=== PATIENT | female | born 1965 | race Caucasian/White ===

== ENCOUNTER → 2018-03-20 14:33 | Outpatient (CLI) | payer BC, SELFPAY ==
--- NOTE | 2018-03-20 14:42 | US_ITS ---
US thyroid HISTORY: ITS.REASON: THYROMEGALY ORDERING PHYSICIAN: Radha Domínguez PATIENT AGE: 52 years Comparison: None FINDINGS: The right lobe is 4.7 x 1.4 x 2.5 cm. 16 x 9 mm ill-defined slightly hypoechoic nodule mid polar region with decreased echogenicity centrally 10 mm isoechoic nodule lower pole well-circumscribed The left lobe measures 5.7 x 2.1 x 2.8 cm. Hypo to isoechoic nodule superiorly at 8 x 6 mm 3.2 x 1.8 cm mixed cystic and solid nodule in the mid polar region 2.9 x 2 cm solid appearing nodule lower pole. Well-circumscribed IMPRESSION: Bilateral thyroid enlargement with bilateral thyroid nodules with 2 largest on the left at 3.2 and 2.9 cm. Consider ultrasound-guided fine-needle aspiration of the 2 largest nodules.
== END ==
PROVIDERS: PCP Family Medicine; Visit Provider Nurse Practitioner
DX: E01.0 Iodine-deficiency related diffuse (endemic) goiter (principal)
CPT/HCPCS: 76536

== ENCOUNTER → 2018-03-26 16:59 | Outpatient (CLI) | payer BC, SELFPAY ==
[2018-03-26 17:47] LABS: Calcium 10.1 mg/dL (8.5-10.1); Free T4 (Free Thyroxine) 0.86 ng/dl (0.76-1.46); Thyroid Stimulating Hormone 1.24 uIU/ml (0.358-3.740)
[2018-03-28 10:59] LABS: Thyroid Peroxidase Antibodies 10 IU/mL (0-34)
[2018-03-30 08:25] LABS: Calcitonin <2.0 pg/mL (0.0-5.0); Thyroid Stimulating Immunoglob <0.10 IU/L (0.00-0.55)
== END ==
PROVIDERS: Visit Provider Otolaryngology
DX: E01.0 Iodine-deficiency related diffuse (endemic) goiter (principal); D49.7 Neoplasm of unspecified behavior of endocrine glands and other parts of nervous system; E04.9 Nontoxic goiter, unspecified
CPT/HCPCS: 36415; 82308; 82310; 84439; 84443; 84445; 86376

== ENCOUNTER → 2018-04-06 09:28 | Outpatient (CLI) | payer BC, SELFPAY ==
--- NOTE | 2018-04-06 09:35 | US_ITS ---
US thyroid, US organ site (thyroid) FNA w guidance, Ordering Physician: Franklyn Grimes MD Patient Age: 52 years: Female HISTORY: ITS.REASON: THYROID NODULE COMPARISON is made to March 20, 2018 ultrasound thyroid. TECHNIQUE: Ultrasound again directly gland was performed with attention primarily to the left lobe. Subsequent to this ultrasound-guided fine-needle aspiration performed by Dr. Anders 2 discrete nodules/masses at the left lobe. FINDINGS AND PROCEDURE: ULTRASOUND THYROID -ATTN LEFT LOBE; 2 nodules/masses is identified left lobe.: The more homogeneous solid nodule at inferior left lobe again identified. It measures up to 2.9 cm maximally on previous study. The second area is at the mid to upper portion of the left lobe. This was was a large multiseptated complex cystic mass which measure up to 3 cm on previous ultrasound These images also determined the best approach for access to perform aspiration biopsy of this nodule. Scanning by Dr. Anders along with technologist MW ======== ULTRASOUND-GUIDED FNA BIOPSY- 2 nodules left lobe . sterile preparation as well as local skin, and cautious slightly deeper placement of Xylocaine anesthetic . . . Site 1.: LEFT LOWER LOBE/INFERIOR SOLID THYROID NODULE at the left lobe was initially biopsied/sample: Under ultrasound guidance the biopsy needle, was advanced to the nodule and positioned. Needle tip was observed passing into this solid nodule on each of multipleFNA biopsies passes. 3 FNA passes performed here with 25-gauge needle . Site 2: Thereafter the SEPTATED COMPLEX CYSTIC MASS at MID TO UPPER LEFT LOBE was then biopsy: Under ultrasound guidance the 25-gauge needle was directed to this area. 3 FNA passes performed a 25-gauge needle. Bloody fluid was removed with each pass. . 2 separate cytology specimen containers were submitted. Adequate material appear to be present in each FNA specimen material obtained and subsequently submitted to cytopathology. Patient tolerated procedure well. With minimal discomfort IMPRESSION: 1. Fine-needle aspiration biopsy of 2 nodule/mass areas at left lobe thyroid. 2. Solid nodule left lower lobe, INFERIOR POLE LEFT LOBE FNA (SITE 1) Complex septated cystic labeled LEFT MID LEFT LOBE, FNA (SITE 2) 3. CYTOPATHOLOGY results:. BENIGN FINDINGS BOTH AREAS. Both site 1 & site 2 FNA samples negative for malignant cells. & Will compatible with benign follicular nodule .
== END ==
PROVIDERS: PCP Family Medicine; Visit Provider Otolaryngology
DX: D49.7 Neoplasm of unspecified behavior of endocrine glands and other parts of nervous system (principal); E01.0 Iodine-deficiency related diffuse (endemic) goiter; E04.9 Nontoxic goiter, unspecified
CPT/HCPCS: 10022; 76536

== ENCOUNTER → 2018-04-28 10:23 | Outpatient (CLI) | payer BC, SELFPAY ==
[2018-04-28 10:57] LABS: Hematocrit 43.7 % (37.0-47.0); Hemoglobin 14.4 g/dL (12.2-16.2); Mean Corpuscular HGB Conc 32.9 g/dL (31.8-35.4); Mean Corpuscular Hemoglobin 29.7 pg (27.0-31.2); Mean Corpuscular Volume 90.1 fl (81-99); Red Blood Count 4.85 M/mm3 (4.20-5.40); White Blood Count 4.3 K/mm3 (4.8-10.8)
[2018-04-28 10:58] LABS: Basophils % 0.5 % (0.1-2.0); Eosinophils # 0.2 K/mm3 (0.0-0.4); Eosinophils % 4.2 % (0.1-12.0); Lymphocytes # 1.3 K/mm3 (0.7-4.5); Lymphocytes % 29.6 K/mm3 (10-50); Mean Platelet Volume 7.3 fl (7.4-10.4); Monocytes # 0.4 K/mm3 (0.1-1.0); Monocytes % 8.8 % (1.7-9.3); Neutrophils # 2.5 K/mm3 (1.8-7.8); Neutrophils % 56.9 % (37.0-80.0); Platelet Count 268 K/mm3 (142-424); Red Cell Distribution Width 12.3 % (11.5-17.5)
[2018-04-28 12:50] LABS: Anion Gap 8.9 mEq/L (5-15); Blood Urea Nitrogen 19 mg/dL (7-18); Calcium 9.5 mg/dL (8.5-10.1); Carbon Dioxide 32 mmol/L (21.0-32.0); Chloride 106 mmol/L (98-107); Creatinine,Serum 0.91 mg/dL (0.55-1.02); Estimated Glomerular Filt Rate 65 ml/min (>60); GFR (African American) 79 ML/MIN (>60); Glucose 94 mg/dL (74-106); Potassium 4.9 mmoL/L (3.5-5.1); Sodium 142 mmol/L (136-145)
== END ==
PROVIDERS: PCP Nurse Practitioner; Visit Provider Nurse Practitioner
DX: Z01.818 Encounter for other preprocedural examination (principal)
CPT/HCPCS: 36415; 80048; 85025; 93005

== ENCOUNTER → 2018-06-16 09:12 | Outpatient (CLI) | payer BC, SELFPAY ==
[2018-06-16 11:26] LABS: Calcium 9.2 mg/dL (8.5-10.1); Free T4 (Free Thyroxine) 1.29 ng/dl (0.76-1.46); Thyroid Stimulating Hormone 0.07 uIU/ml (0.358-3.740)
== END ==
PROVIDERS: PCP Nurse Practitioner; Visit Provider Otolaryngology
DX: D49.7 Neoplasm of unspecified behavior of endocrine glands and other parts of nervous system (principal); Z98.890 Other specified postprocedural states
CPT/HCPCS: 36415; 82310; 84439; 84443

== ENCOUNTER → 2019-05-16 14:26 | Outpatient (CLI) | payer BC, SELFPAY ==
--- NOTE | 2019-05-16 14:35 | US_ITS ---
PROCEDURE: US TRANSVAGINAL CLINICAL INDICATION: POST MENOPAUSAL BLEEDING COMPARISON: No exams were available for comparison FINDINGS: UTERUS: The uterus is retroverted measuring 8 x 5 x 6 cm with a combined endometrial thickness of 1 cm. No uterine mass evident. LEFT OVARY: 3 by 3 cm with small follicles RIGHT OVARY: 3 x 2.7 cm. There is a 3 x 2 cm cyst with a small amount of fluid adjacent to the right ovary. IMPRESSION: 1. Endometrium is mildly thickened if the patient is truly postmenopausal. 2. 3 cm right ovarian cyst with small amount of sub adjacent fluid Dictated by: Jackson Cabrera MD 05/17/2019 06:02 Electronically signed by Jackson Cabrera MD in [place] 05/17/2019 06:02
== END ==
PROVIDERS: PCP Nurse Practitioner; Visit Provider Nurse Practitioner
DX: N95.0 Postmenopausal bleeding (principal)
CPT/HCPCS: 76830

== ENCOUNTER → 2019-07-01 16:18 | Outpatient (CLI) | payer BC, SELFPAY ==
[2019-07-01 18:37] LABS: Free T4 (Free Thyroxine) 1.03 ng/dl (0.76-1.46); Thyroid Stimulating Hormone 1.19 uIU/ml (0.358-3.740)
== END ==
PROVIDERS: Visit Provider Otolaryngology
DX: E03.9 Hypothyroidism, unspecified (principal)
CPT/HCPCS: 36415; 84439; 84443

== ENCOUNTER → 2021-01-25 14:31 | Outpatient (CLI) | payer BC, SELFPAY ==
--- NOTE | 2021-01-25 14:37 | US_ITS ---
PROCEDURE: MM DIG MAMM BI DX W/CAD Digital Breast Tomosynthesis Included CLINICAL INDICATION: BREAST PAIN,RT COMPARISON: MG Mammogram Comparison from 03/20/2007 MG Mammogram Comparison from 03/29/2007 MG DMSB DIG MAMM-SCREEN DANILO from 04/09/2013 US BL US BREAST-LT from 05/07/2013 MG DMDXUWAL DIG MAMM-DX UNI LT ADD VIEW from 05/07/2013 US US BREAST RT COMPLETE from 01/25/2021 TECHNIQUE: Standard CC and MLO images and 3D Tomosynthesis was obtained. R2 CAD reviewed. FINDINGS: Exams were performed without comparison. Comparison studies have been made available since. Problem solving views were not performed as a comparison is were not available at the time the performance of the study. Ultrasound the right breast was performed along with mammogram and tomography. Average fibroglandular tissue. Right breast: Benign-appearing well-circumscribed slightly lobular 6 mm nodules present in the upper outer right breast. Left breast: At least three nodular opacities are present 1 in the upper outer left breast which measures 7 mm. One in the upper left breast at 9 mm. And 1 in the upper outer left breast central 1/3 at 12 mm. Ultrasound of the left breast suggested for further evaluation. Right breast ultrasound: There is a palpable nodule reported in the axillary region. At 12 o'clock there is a 9 mm complicated cystic lesion. At 9 o'clock there is an additional complicated cystic area at 8 mm which may correspond to the mammographic abnormality.. Small nodes are present in the axilla. No abnormality noted at the area of palpable concern. IMPRESSION: Multiple benign-appearing left breast nodules which were not present on the previous study. Suggest left breast ultrasound to confirm cystic or solid nature. Benign findings of the right breast. BI-RAD Category: 0 Need Additional Imaging Evaluation FOLLOW-UP: IMM Immediate Follow-up Recommended (A letter has been sent to the patient regarding results of the study.) Dictated by: Jackson Cabrera MD 02/08/2021 11:08 Jackson Cabrera MD in [place] 02/08/2021 11:08
== END ==
PROVIDERS: PCP Nurse Practitioner; Visit Provider Nurse Practitioner
DX: N64.4 Mastodynia (principal)
CPT/HCPCS: 76641; 77062; 77066; G0279

== ENCOUNTER → 2021-02-16 14:12 | Outpatient (CLI) | payer BC, SELFPAY ==
--- NOTE | 2021-02-16 14:14 | US_ITS ---
PROCEDURE: US BREAST LT COMPLETE CLINICAL INDICATION: ABN MAMM Left breast nodules COMPARISON: MG Mammogram Comparison from 03/20/2007 MG Mammogram Comparison from 03/29/2007 US BL US BREAST-LT from 05/07/2013 MG DMDXUWAL DIG MAMM-DX UNI LT ADD VIEW from 05/07/2013 US US BREAST RT COMPLETE from 01/25/2021 MG MM DIG MAMM BI DX W/CAD from 01/25/2021 FINDINGS: Previous mammogram demonstrated 3 nodules in the left breast. These areas were evaluated with ultrasound. Comparison is also made to an older ultrasound of 05/07/2013. At 1 o'clock there is a nodule measuring 5 mm by 6 mm with peripheral hypoechogenicity and internal increased echogenicity suggesting a small lymph node. At 3 o'clock outer there is a an 8 by 4 mm I so to slightly hypoechoic area possibly due to small benign-appearing nodule versus fibroglandular tissue. This may account for the new mammographic abnormality. This was present on previous ultrasound of 05/07/2013 and not significantly changed. At 1 o'clock in the mid breast there is a 8 x 4 mm mixed nodule with areas of increased and decreased echogenicity and may be due to lymph node having a benign appearance. IMPRESSION: Probably benign findings. BI-RADS category 3, probably benign. Recommend six-month mammographic and sonographic follow-up of the left breast. Dictated by: Jackson Cabrera MD 02/17/2021 09:02 Jackson Cabrera MD in [place] 02/17/2021 09:02
== END ==
PROVIDERS: PCP Nurse Practitioner; Visit Provider Nurse Practitioner
DX: R92.8 Other abnormal and inconclusive findings on diagnostic imaging of breast (principal)
CPT/HCPCS: 76641

== ENCOUNTER → 2021-03-22 17:25 | Outpatient (CLI) | payer BC, SELFPAY | PROVIDERS: Visit Provider Surgery | DX: Z01.812 Encounter for preprocedural laboratory examination (principal); Z11.52 Encounter for screening for COVID-19; Z12.11 Encounter for screening for malignant neoplasm of colon | CPT/HCPCS: U0003 ==

== ENCOUNTER 2021-03-24 06:41 | Day surgery (SDC) | payer BC, SELFPAY ==
[2021-03-23 10:16] VITALS: BMI 35.5
[2021-03-24] VITALS (8 sets, daily range): BP systolic 111–153; BP diastolic 61–88; PULSE 62–75; RESP 18–20; TEMP 36.2–36.7; O2SAT 96–100
--- NOTE | 2021-03-24 07:08 | HMH.GSHP ---
HPI HPI: Patient is a 55-year-old female from [facility] referred by Radha Domínguez and Dr. Sorto's office for colonoscopy. She has never had prior colonoscopy. Her father had of colon cancer at age 67. He did have melanoma and lymphoma as well. She states that her paternal aunt may have had colon cancer. She has no symptomatology. Normal bowel movements. No rectal bleeding. Of note, patient had significant nausea and vomiting upon presentation after second dose of her Suprep. [facility] History I have reviewed the patient's past medical history: Yes Medical History: Reports:: Depression Denies:: Cancer, Diabetes Mellitus Type 1, Diabetes Mellitus Type 2, Internal Pacemaker, MRSA, Seizures *Have you ever received a pneumonia vaccine?: No *Have you received a flu vaccine this season?: Yes (2019) Other Medical History: Reports: Thyroid Disease. Denies: Blood Transfusion Reaction Laterality Cases: Bilateral: Other Other Surgeries: Yes: , Dilation and Curettage, Thyroidectomy. 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 Review of Systems - Review of Systems Review of systems:: pertinent systems reviewed and negative unless documented below Meds Home Medications Medication Instructions Recorded Confirmed Type levothyroxine 112 mcg capsule 112 mcg PO DAILY 04/06/19 03/24/21 History Cetirizine HCl [Zyrtec 10mg Tab*] 10 mg PO DAILY 03/23/21 03/24/21 History Sertraline HCl 75 mg PO DAILY 03/23/21 03/24/21 History Allergies Allergy/AdvReac Type Severity Reaction Status Date / Time naproxen [From Aleve] Allergy tounge Verified 03/24/21 07:01 swells Exam I & O for Last 24 hours: Intake & Output 03/21/21 03/22/21 03/23/21 03/24/21 11:59 11:59 11:59 11:59 Weight 220 lb - Constitutional no acute distress - *Routine HEENT Exam Head: Present: normocephalic Eye: Present: EOMI, PERRL ENT: Present: mucous membranes moist - *Routine Neck Exam Present: supple. Absent: lymphadenopathy - *Routine Respiratory Exam Present: CTA bilaterally - *Routine Cardiovascular Exam Present: RRR - *Routine Abdominal Exam Present: soft, normoactive bowel sounds. Absent: tenderness - *Routine Rectal Exam Rectal:: deferred - *Routine Genitalia Exam Genitalia:: deferred - *Routine Extremities Exam Absent: cyanosis, clubbing, edema - *Routine Skin Exam Present: warm. Absent: rash - *Routine Neurological Exam Present: alert, oriented X3 Assessment and Plan - Assessment and plan all Dx Assessment and Plan for all problems:: Plan to proceed with colonoscopy
[2021-03-24 07:18] LABS: POC Glucose,Bedside 161 (70-110)
--- NOTE | 2021-03-24 08:20 | P.PCN_ITS ---
- Procedure: Date: 03/24/21 Patient Date of :: 1965 Procedure Performed:: Total colonoscopy with polypectomy by snare Indications:: Patient is a 55-year-old female from [facility] referred by Radha Domínguez and Dr. Sorto's office for colonoscopy. She has never had prior colonoscopy. Her father had of colon cancer at age 67. He did have melanoma and lymphoma as well. She states that her paternal aunt may have had colon cancer. She has no symptomatology. Normal bowel movements. No rectal bleeding. Of note, patient had significant nausea and vomiting upon presentation after second dose of her Suprep. Performing Provider:: Felton Lin MD Referring Provider:: Radha Domínguez Sedation:: MAC sedation Procedure:: Patient was taken to endoscopy procedure room. She was positioned in lateral decubitus position. Adequate intravenous sedation was achieved. Digital examination was performed which was unremarkable. Variable stiffness Olympus colonoscope was inserted via the anus. Was advanced to the cecum. Advancement into the cecum was somewhat difficult due to significant floppiness and redundancy of the sigmoid colon. Colonic preparation was good. Ileocecal valve and appendiceal orifice were clearly identified. Colonoscope was withdrawn through the colon with careful surveillance. There was noted to be a small poly p in the distal transverse colon removed with cold cutting snare. There were a few very rare left-sided diverticuli. Within the rectum retroflexion was performed which revealed no evidence of any pathologic internal hemorrhoids. Colonoscope was withdrawn. Findings:: Small transverse colon polyp Rare left-sided diverticuli Recommendations:: Pending the pathology likely repeat colonoscopy 3 years given the family history Complications:: None immediately apparent Estimated blood obtained (mL): 1
--- NOTE | 2021-03-24 10:22 | HMH.ANESCL ---
[facility] Anesthesia Checklist - Patient Identification Patient Identification: Arm Band, Verbal (Name & ) - Structural Data Admitted From: Home Planned Operative Procedure/s: colonoscopy Consent for Planned Operative Procedure(s) Verified: Yes Verified Documents: History and Physical - NPO Status Verified Time NPO: 00:00 - Chart Verification Results Verified: CBC - Additional verifications Patient : No Anesthesia Reactions: No Hx Blood Transfusions: No Blood Transfusion Reaction: No Cephalosporin Allergy: No Previous Colonoscopy: Yes - Cardiovascular Assessment Heart Sounds: S1 & S2 Pulse Strength: Baseline Pulse Rhythm: Regular - Airway Assessment C-Spine Mobility Assessed: Yes TMJ Mobility Assessed: Yes Dentition: Good Dentition - Neurological Assessment Level of Consciousness: Awake, Alert, Appropriate Hx Seizures: No Numbness or tingling in extremities: No - Anesthesia Plan Anesthesia Risk discussed: Yes Anesthesia Plan: Verified ASA Class: II Anesthesia Type: MAC [facility] History I have reviewed the patient's past medical history: Yes Medical History: Reports:: Depression Denies:: Cancer, Diabetes Mellitus Type 1, Diabetes Mellitus Type 2, Internal Pacemaker, MRSA, Seizures *Have you ever received a pneumonia vaccine?: No *Have you received a flu vaccine this season?: Yes (2019) Other Medical History: Reports: Thyroid Disease. Denies: Blood Transfusion Reaction Anesthesia experience/problems:: none Laterality Cases: Bilateral: Other Other Surgeries: Yes: , Dilation and Curettage, Thyroidectomy. 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
== END 2021-03-24 09:15 | disposition home or self-care (01) ==
LOC: OUTP 06:45
PROVIDERS: PCP Nurse Practitioner; Visit Provider Surgery
PROC: 0DJD8ZZ Inspection of Lower Intestinal Tract, Via Natural or Artificial Opening Endoscopic (ICD-10-PCS; CPT 45385; principal; 2021-03-24 07:30)
DX: Z12.11 Encounter for screening for malignant neoplasm of colon (principal); Z80.0 Family history of malignant neoplasm of digestive organs; K63.5 Polyp of colon; K57.30 Diverticulosis of large intestine without perforation or abscess without bleeding; F32.9 Major depressive disorder, single episode, unspecified; E07.9 Disorder of thyroid, unspecified; Z83.3 Family history of diabetes mellitus; Z83.49 Family history of other endocrine, nutritional and metabolic diseases; Z88.6 Allergy status to analgesic agent; Z79.899 Other long term (current) drug therapy
CPT/HCPCS: 45385; 82962; J2704

== ENCOUNTER → 2021-04-23 16:40 | Outpatient (CLI) | payer BC, SELFPAY ==
--- NOTE | 2021-04-23 16:51 | XR_ITS ---
PROCEDURE INFORMATION: Exam: XR Chest Exam date and time: 04/23/2021 4:51 PM Age: 55 years old Clinical indication: Shortness of breath; Additional info: Covid outpatient TECHNIQUE: Imaging protocol: XR of the chest. Views: 1 view. COMPARISON: No relevant prior studies available. FINDINGS: Airway: Patent Lungs: Subtle bilateral infrahilar and basal ground-glass opacifications are noted. Remainder of the lungs are clear. Pleural spaces: Unremarkable. No pleural effusion. No pneumothorax. Heart/Mediastinum: Unremarkable. No cardiomegaly. Bones/joints: No acute skeletal abnormality or aggressive osseous lesion. IMPRESSION: Findings are concerning for early/developing basal predominant COVID-19 pneumonia in this patient with a positive history.
[2021-04-23 17:49] LABS: Basophils % 0.6 % (0.1-2.0); Eosinophils # 0.2 K/mm3 (0.0-0.4); Hematocrit 40.6 % (37.0-47.0); Hemoglobin 13.6 g/dL (12.2-16.2); Lymphocytes # 1.7 K/mm3 (0.7-4.5); Lymphocytes % 24.4 % (10-50); Mean Corpuscular HGB Conc 33.6 g/dL (31.8-35.4); Mean Corpuscular Hemoglobin 29.9 pg (27.0-31.2); Mean Corpuscular Volume 88.8 fl (81-99); Mean Platelet Volume 7.5 fl (7.4-10.4); Monocytes # 0.4 K/mm3 (0.1-1.0); Monocytes % 6.3 % (1.7-9.3); Neutrophils # 4.6 K/mm3 (1.8-7.8); Neutrophils % 65.7 % (37.0-80.0); Platelet Count 304 K/mm3 (142-424); Red Blood Count 4.57 M/mm3 (4.20-5.40); Red Cell Distribution Width 12.7 % (11.5-17.5)
== END ==
PROVIDERS: PCP Nurse Practitioner; Visit Provider Nurse Practitioner
DX: Z20.822 Contact with and (suspected) exposure to COVID-19 (principal); R06.02 Shortness of breath
CPT/HCPCS: 71045; 85025; C9803; U0003; U0005

== ENCOUNTER → 2021-04-27 09:59 | Outpatient (CLI) | payer BC, SELFPAY | PROVIDERS: PCP Nurse Practitioner; Visit Provider Nurse Practitioner | DX: Z20.822 Contact with and (suspected) exposure to COVID-19 (principal); U07.1 COVID-19 | CPT/HCPCS: C9803; U0003; U0005 ==

== ENCOUNTER → 2021-05-10 18:27 | Outpatient (CLI) | payer BC, SELFPAY ==
--- NOTE | 2021-05-10 19:31 | XR_ITS ---
PROCEDURE INFORMATION: Exam: XR Chest Exam date and time: 05/10/2021 7:31 PM Age: 55 years old Clinical indication: Condition or disease; Other: Covid positive patient; Additional info: Covid outpatient TECHNIQUE: Imaging protocol: XR of the chest. Views: 1 view. COMPARISON: CR XR CHEST PORTABLE 04/23/2021 4:55 PM FINDINGS: Lungs: Unremarkable. No consolidation. Pleural spaces: Unremarkable. No pleural effusion. No pneumothorax. Heart/Mediastinum: Unremarkable. No cardiomegaly. Bones/joints: There are old healed fractures noted along the posterior aspects of the left 4th through 8th ribs. There are degenerative changes of the thoracic spine. IMPRESSION: No acute findings.
[2021-05-10 20:11] LABS: Basophils # 0.1 K/mm3 (0-0.2); Basophils % 0.7 % (0.1-2.0); Eosinophils # 0.3 K/mm3 (0.0-0.4); Eosinophils % 3.8 % (0.1-12.0); Hematocrit 42.6 % (37.0-47.0); Hemoglobin 14.5 g/dL (12.2-16.2); Lymphocytes # 1.9 K/mm3 (0.7-4.5); Lymphocytes % 21.4 % (10-50); Mean Corpuscular Hemoglobin 30.2 pg (27.0-31.2); Mean Corpuscular Volume 88.7 fl (81-99); Mean Platelet Volume 7.7 fl (7.4-10.4); Monocytes # 0.6 K/mm3 (0.1-1.0); Monocytes % 6.4 % (1.7-9.3); Neutrophils # 5.9 K/mm3 (1.8-7.8); Neutrophils % 67.6 % (37.0-80.0); Platelet Count 369 K/mm3 (142-424); Red Blood Count 4.81 M/mm3 (4.20-5.40); Red Cell Distribution Width 13.3 % (11.5-17.5); White Blood Count 8.8 K/mm3 (4.8-10.8)
== END ==
PROVIDERS: Family Medicine; PCP Nurse Practitioner; Visit Provider Nurse Practitioner
DX: Z20.822 Contact with and (suspected) exposure to COVID-19 (principal); U07.1 COVID-19
CPT/HCPCS: 36415; 71045; 85025; C9803; U0003; U0005

== ENCOUNTER → 2021-08-02 13:33 | Outpatient (CLI) | payer BC, SELFPAY ==
--- NOTE | 2021-08-02 13:41 | MM_ITS ---
PROCEDURE INFORMATION: Exam: US Left Breast, Complete MG Left Diagnostic Breast Tomosynthesis Exam date and time: 08/02/2021 1:42 PM Age: 55 years old Clinical indication: Six-month a follow-up was recommended on 02/16/2021 to assess stability of left 1 o'clock and 3 o'clock breast mass. TECHNIQUE: Imaging protocol: Complete ultrasound of all four quadrants of the Left breast and the retroareolar regions, including ultrasound of the axilla when performed. Left Diagnostic tomosynthesis and 2D mammography including computer-aided detection (CAD) when performed. Unilateral or bilateral exam. COMPARISON: 1. MG MM DIG MAMM BI DX W/CAD 01/25/2021 2:44 PM 2. MG DMDXUWAL DIG MAMM-DX UNI LT ADD VIEW 05/07/2013 1:59 PM 3. MG DMSB DIG MAMM-SCREEN DANILO 04/09/2013 10:17 AM 4. US BREAST LT COMPLETE 02/16/2021 2:19 PM FINDINGS: MAMMOGRAPHY: There are scattered areas of fibroglandular density. There are 3 nodules in the upper outer left breast measuring 12 mm in the upper outer about 10 cm from the nipple, measuring 8 mm upper outer 12 cm from the nipple, and measuring 6 mm upper outer 19 cm from the nipple. These are entirely unchanged compared with 01/25/2021 and I suspect were present on 04/09/2013 but obscured by overlying glandular structures. No associated architectural distortion or suspicious calcifications are present. These have mammographic features highly suggestive of benign intramammary lymph nodes No new mass, architectural distortion, or suspicious calcifications have developed to suggest malignancy. No axillary adenopathy. ULTRASOUND: Ultrasound assessment demonstrates a horizontal hypoechoic gently lobulated 7 x 4 by 6 mm mass in the 1 o'clock left middle 1/3 breast and measuring 4 x 6 x 4 mm in the 1 o'clock left posterior breast. These demonstrate central elevated echotexture, highly suggestive of benign intramammary lymph node. These previously measured 7 x 8 x 4 mm and 5 x 6 x 4 mm respectively on 02/16/2021 No suspicious solid or cystic mass has developed No shadowing IMPRESSION: Stable appearance of 3 suspected upper outer left breast intramammary lymph nodes. No new or suspicious findings have developed. Continued surveillance is warranted with left diagnostic mammogram and ultrasound in 6 months, at which time the patient will be due for bilateral screening mammogram ASSESSMENT: BI-RADS category 3: Probably benign
== END ==
PROVIDERS: PCP Nurse Practitioner; Visit Provider Nurse Practitioner
DX: R92.8 Other abnormal and inconclusive findings on diagnostic imaging of breast (principal)
CPT/HCPCS: 76641; 77061; 77065; G0279

== ENCOUNTER → 2021-10-20 10:32 | Outpatient (CLI) | payer BC, SELFPAY ==
[2021-10-20 10:52] LABS: Adenovirus,PCR Not Detected (NotDetected); Bordetella Pertussis Not Detected (NotDetected); Chlamydophila Pneumoniae, PCR Not Detected (NotDetected); Coronavirus 19, PCR Not Detected (NotDetected); Coronavirus 229E Not Detected (NotDetected); Coronavirus NL63 Not Detected (NotDetected); Coronavirus OC43 Not Detected (NotDetected); Coronovirus HKU1,PCR Not Detected (NotDetected); Human Metapneumovirus Not Detected (NotDetected); Influenza A, PCR Not Detected (NotDetected); Influenza AH1, 2009 Not Detected (NotDetected); Influenza AH1, PCR Not Detected (NotDetected); Influenza AH3,PCR Not Detected (NotDetected); Influenza B, PCR Not Detected (NotDetected); Mycoplasma Pneumoniae, PCR Not Detected (NotDetected); Parainfluenza 1, PCR Not Detected (NotDetected); Parainfluenza 2, PCR Not Detected (NotDetected); Parainfluenza 3, PCR Not Detected (NotDetected); Parainfluenza 4, PCR Not Detected (NotDetected); Respiratory Syncytial Virus Not Detected (NotDetected); Rhinovirus/Enterovirus Not Detected (NotDetected)
[2021-10-20 10:57] LABS: Basophils % 0.4 % (0.1-2.0); Eosinophils # 0.2 K/mm3 (0.0-0.4); Eosinophils % 2.1 % (0.1-12.0); Hematocrit 43.7 % (37.0-47.0); Hemoglobin 14.1 g/dL (12.2-16.2); Lymphocytes # 1.4 K/mm3 (0.7-4.5); Lymphocytes % 15.2 % (10-50); Mean Corpuscular HGB Conc 32.4 g/dL (31.8-35.4); Mean Corpuscular Hemoglobin 29.7 pg (27.0-31.2); Mean Corpuscular Volume 91.9 fl (81-99); Mean Platelet Volume 8.3 fl (7.4-10.4); Monocytes # 0.6 K/mm3 (0.1-1.0); Monocytes % 6.5 % (1.7-9.3); Neutrophils # 7.1 K/mm3 (1.8-7.8); Neutrophils % 75.8 % (37.0-80.0); Platelet Count 305 K/mm3 (142-424); Red Blood Count 4.76 M/mm3 (4.20-5.40); Red Cell Distribution Width 13.3 % (11.5-17.5); White Blood Count 9.4 K/mm3 (4.8-10.8)
== END ==
PROVIDERS: PCP Nurse Practitioner; Visit Provider Nurse Practitioner
DX: Z20.822 Contact with and (suspected) exposure to COVID-19 (principal)
CPT/HCPCS: 36415; 85025; 87581; 87632; 87798; C9803; U0003; U0005

== ENCOUNTER → 2022-02-10 12:57 | Outpatient (CLI) | payer BC, OTHER, SELFPAY ==
--- NOTE | 2022-02-10 13:01 | US_ITS ---
The PROCEDURE INFORMATION: Exam: US Left Breast, Complete MG Bilateral Screening 3D Mammography Exam date and time: 02/10/2022 1:03 PM Age: 56 years old Clinical indication: Screening examination; Abnormal findings on imaging; Left; Mass; Additional info: Screening, danilo , f/u lt breast TECHNIQUE: Imaging protocol: Complete ultrasound of all four quadrants of the Left breast and the retroareolar regions, including ultrasound of the axilla when performed. Bilateral Screening tomosynthesis and 2D mammography including computer-aided detection (CAD) when performed. COMPARISON: 1. MG MM DIG MAMM DX UNILAT LT CAD 08/02/2021 2:00 PM 2. MG MM DIG MAMM BI DX W/CAD 01/25/2021 2:44 PM 3. MG DMDXUWAL DIG MAMM-DX UNI LT ADD VIEW 05/07/2013 1:59 PM 4. MG DMSB DIG MAMM-SCREEN DANILO 04/09/2013 10:17 AM Ultrasound 08/02/2021 and 02/16/2021 FINDINGS: MAMMOGRAPHY: There are scattered areas of fibroglandular density. 3 upper outer left breast masses ranging from 4 mm to 11 mm are unchanged. No associated architectural distortion or suspicious calcifications are present the the the No new mass, architectural distortion, or suspicious calcifications have developed to suggest malignancy. No axillary adenopathy. Left breast ULTRASOUND: Ultrasound of the left breast was performed to the the assess stability of left breast masses Along the 1 o'clock axis 8 cm from the left nipple there is a mixed hypoechoic and echogenic horizontally oriented circumscribed gently lobulated mass which measures 9 x 9 x 6 mm. This was not characterized on 02/16/2021 and measured about 7 x 7 by 4 mm on 08/02/2021. Of note, this appears to be stable mammographically the The difference in size may reflect altered measuring technique. This does require short-term follow-up targeted ultrasound to assure stability Echogenic structure with hypoechoic cortex along the 1 o'clock axis posteriorly has sonographic features consistent with a 7 mm intramammary lymph node which is not significantly changed given the difference in measuring technique Hypoechoic circumscribed cystic appearing structure in the lower outer quadrant left breast 7 cm from the nipple has features of a minimally complicated cyst IMPRESSION: Sonographic surveillance of a left-sided 1 o'clock breast mass is warranted in 6 months to assure stability. This demonstrates generally benign features and is mammographically stable dating back to 08/02/2021, however apparent sonographic increase in size is thought to reflect measuring technique ASSESSMENT: Screening mammogram BIRADS: BI-RADS category 2: Benign Overall BIRADS: BI-RADS category 3: Probably benign
== END ==
PROVIDERS: PCP Nurse Practitioner; Visit Provider Nurse Practitioner
DX: R92.8 Other abnormal and inconclusive findings on diagnostic imaging of breast (principal)
CPT/HCPCS: 76641; 77063; 77067

== ENCOUNTER → 2022-02-25 06:35 | Outpatient (CLI) | payer BC, OTHER, SELFPAY ==
[2022-02-24 19:04] LABS: Basophils % 0.7 % (0.1-2.0); Eosinophils # 0.2 K/mm3 (0.0-0.4); Eosinophils % 3.4 % (0.1-12.0); Hematocrit 42.5 % (37.0-47.0); Hemoglobin 14.3 g/dL (12.2-16.2); Lymphocytes # 1.7 K/mm3 (0.7-4.5); Lymphocytes % 29.6 % (10-50); Mean Corpuscular HGB Conc 33.7 g/dL (31.8-35.4); Mean Corpuscular Hemoglobin 29.1 pg (27.0-31.2); Mean Corpuscular Volume 86.1 fl (81-99); Mean Platelet Volume 7.9 fl (7.4-10.4); Monocytes # 0.5 K/mm3 (0.1-1.0); Monocytes % 8.5 % (1.7-9.3); Neutrophils # 3.4 K/mm3 (1.8-7.8); Neutrophils % 57.8 % (37.0-80.0); Platelet Count 329 K/mm3 (142-424); Red Blood Count 4.94 M/mm3 (4.20-5.40); Red Cell Distribution Width 12.9 % (11.5-17.5); White Blood Count 5.8 K/mm3 (4.8-10.8)
[2022-02-24 19:18] LABS: Alanine Aminotransferase 31 U/L (12-78); Albumin Level 3.9 g/dl (3.5-5.0); Albumin/Globulin Ratio 1.5 (1.1-1.8); Alkaline Phosphatase 103 U/L (38-126); Anion Gap 12.1 mEq/L (5-15); Aspartate Amino Transferase 31 U/L (14-36); Blood Urea Nitrogen 20 mg/dl (7-17); Calcium 9.8 mg/dl (8.4-10.2); Carbon Dioxide 26 mmol/L (22.0-30.0); Chloride 105 mmol/L (98-107); Chol/HDL Ratio 3.2 (1-3.5); Cholesterol 179 mg/dl (140-200); Estimated Glomerular Filt Rate 87 ml/min (>60); GFR (African American) 105 ML/MIN (>60); Globulin 2.6 g/dL (1.3-3.2); Glucose 96 mg/dl (74-100); HDL Cholesterol 56 mg/dl (40-60); Potassium 4.1 mmoL/L (3.5-5.1); Sodium 139 mmol/L (136-145); Total Protein,Serum 6.5 g/dl (6.3-8.2); Triglycerides 101 mg/dl (30-150); VLDL Cholesterol 20 mg/dL (0-40)
[2022-02-24 19:19] LABS: Bilirubin,Total 0.1 mg/dl (0.2-1.3)
[2022-02-24 19:28] LABS: Direct LDL Cholesterol 93.69 mg/dL (100-129)
[2022-02-24 19:31] LABS: Free T4 (Free Thyroxine) 1.41 ng/dl (0.78-2.19)
[2022-02-24 19:48] LABS: Thyroid Stimulating Hormone 0.81 uIU/mL (0.465-4.68)
[2022-02-24 20:06] LABS: Vitamin B12 598 pg/mL (239-931)
[2022-02-24 20:10] LABS: Microalbumin < 6.000 mg/L (0-16.7)
[2022-02-24 21:13] LABS: 25-OH Vitamin D, Total 45.6 ng/mL (30-100)
== END ==
PROVIDERS: PCP Nurse Practitioner; Visit Provider Nurse Practitioner
DX: E89.0 Postprocedural hypothyroidism (principal); E11.9 Type 2 diabetes mellitus without complications; I10 Essential (primary) hypertension; E55.9 Vitamin D deficiency, unspecified
CPT/HCPCS: 80053; 80061; 82043; 82306; 82607; 84439; 84443; 85025

== ENCOUNTER → 2022-06-22 15:45 | Outpatient (CLI) | payer BC, OTHER, SELFPAY ==
[2022-06-22 18:52] LABS: Adenovirus,PCR Not Detected (NotDetected); Bordetella Pertussis Not Detected (NotDetected); Chlamydophila Pneumoniae, PCR Not Detected (NotDetected); Coronavirus 19, PCR Not Detected (NotDetected); Coronavirus 229E Not Detected (NotDetected); Coronavirus NL63 Not Detected (NotDetected); Coronavirus OC43 Not Detected (NotDetected); Coronovirus HKU1,PCR Not Detected (NotDetected); Human Metapneumovirus Not Detected (NotDetected); Influenza A, PCR Not Detected (NotDetected); Influenza AH1, 2009 Not Detected (NotDetected); Influenza AH1, PCR Not Detected (NotDetected); Influenza AH3,PCR Not Detected (NotDetected); Influenza B, PCR Not Detected (NotDetected); Mycoplasma Pneumoniae, PCR Not Detected (NotDetected); Parainfluenza 1, PCR Not Detected (NotDetected); Parainfluenza 2, PCR Not Detected (NotDetected); Parainfluenza 3, PCR Not Detected (NotDetected); Parainfluenza 4, PCR Not Detected (NotDetected); Respiratory Syncytial Virus Not Detected (NotDetected); Rhinovirus/Enterovirus Not Detected (NotDetected)
== END ==
PROVIDERS: PCP Nurse Practitioner; Visit Provider Nurse Practitioner
DX: J06.9 Acute upper respiratory infection, unspecified (principal)
CPT/HCPCS: 87581; 87632; 87798; C9803; U0003; U0005

== ENCOUNTER → 2022-07-12 11:49 | Outpatient (CLI) | payer BC, OTHER, SELFPAY ==
[2022-07-12 19:28] LABS: Adenovirus,PCR Not Detected (NotDetected); Bordetella Pertussis Not Detected (NotDetected); Chlamydophila Pneumoniae, PCR Not Detected (NotDetected); Coronavirus 19, PCR Not Detected (NotDetected); Coronavirus 229E Not Detected (NotDetected); Coronavirus NL63 Not Detected (NotDetected); Coronavirus OC43 Not Detected (NotDetected); Coronovirus HKU1,PCR Not Detected (NotDetected); Human Metapneumovirus Not Detected (NotDetected); Influenza A, PCR Not Detected (NotDetected); Influenza AH1, 2009 Not Detected (NotDetected); Influenza AH1, PCR Not Detected (NotDetected); Influenza AH3,PCR Not Detected (NotDetected); Influenza B, PCR Not Detected (NotDetected); Mycoplasma Pneumoniae, PCR Not Detected (NotDetected); Parainfluenza 1, PCR Not Detected (NotDetected); Parainfluenza 2, PCR Not Detected (NotDetected); Parainfluenza 3, PCR Not Detected (NotDetected); Parainfluenza 4, PCR Not Detected (NotDetected); Respiratory Syncytial Virus Not Detected (NotDetected)
[2022-07-13 11:11] LABS: Rhinovirus/Enterovirus Detected (NotDetected)
== END ==
PROVIDERS: PCP Nurse Practitioner; Visit Provider Nurse Practitioner
DX: J06.9 Acute upper respiratory infection, unspecified (principal); J40 Bronchitis, not specified as acute or chronic; R05.9 Cough, unspecified; R06.2 Wheezing; B34.1 Enterovirus infection, unspecified
CPT/HCPCS: 87581; 87632; 87798; C9803; U0003; U0005

== ENCOUNTER → 2022-10-19 23:41 | Outpatient (CLI) | payer BC, SELFPAY ==
[2022-10-19 18:30] LABS: Coronavirus 19, PCR Not Detected (NotDetected); Influenza A, PCR Not Detected (NotDetected); Influenza B, PCR Not Detected (NotDetected)
[2022-10-19 18:55] LABS: Basophils % 0.5 % (0.1-2.0); Eosinophils # 0.3 K/mm3 (0.0-0.4); Eosinophils % 3.5 % (0.1-12.0); Hemoglobin 14.5 g/dL (12.2-16.2); Lymphocytes # 1.5 K/mm3 (0.7-4.5); Lymphocytes % 21.4 % (10-50); Mean Corpuscular Hemoglobin 28.9 pg (27.0-31.2); Mean Corpuscular Volume 87.6 fl (81-99); Mean Platelet Volume 8.2 fl (7.4-10.4); Monocytes # 0.5 K/mm3 (0.1-1.0); Neutrophils # 4.8 K/mm3 (1.8-7.8); Neutrophils % 67.7 % (37.0-80.0); Platelet Count 317 K/mm3 (142-424); Red Blood Count 5.03 M/mm3 (4.20-5.40); Red Cell Distribution Width 12.9 % (11.5-17.5)
== END ==
PROVIDERS: PCP Nurse Practitioner; Visit Provider Nurse Practitioner
DX: J06.9 Acute upper respiratory infection, unspecified (principal)
CPT/HCPCS: 85025; C9803; U0003; U0005

== ENCOUNTER → 2023-01-30 23:24 | Outpatient (CLI) | payer BC, SELFPAY ==
[2023-01-30 19:20] LABS: Basophils % 0.7 % (0.1-2.0); Eosinophils # 0.2 K/mm3 (0.0-0.4); Eosinophils % 3.9 % (0.1-12.0); Hematocrit 44.6 % (37.0-47.0); Hemoglobin 14.3 g/dL (12.2-16.2); Lymphocytes # 1.2 K/mm3 (0.7-4.5); Lymphocytes % 20.2 % (10-50); Mean Corpuscular Hemoglobin 28.8 pg (27.0-31.2); Mean Platelet Volume 9.4 fl (7.4-10.4); Monocytes # 0.4 K/mm3 (0.1-1.0); Monocytes % 6.4 % (1.7-9.3); Neutrophils # 4.1 K/mm3 (1.8-7.8); Neutrophils % 68.8 % (37.0-80.0); Platelet Count 286 K/mm3 (142-424); Red Blood Count 4.96 M/mm3 (4.20-5.40); Red Cell Distribution Width 13.3 % (11.5-17.5)
[2023-01-30 19:53] LABS: Alanine Aminotransferase 27 U/L (12-78); Albumin/Globulin Ratio 1.5 (1.1-1.8); Alkaline Phosphatase 94 U/L (38-126); Anion Gap 12.4 mEq/L (5-15); Aspartate Amino Transferase 28 U/L (14-36); Bilirubin,Total 0.3 mg/dl (0.2-1.3); Blood Urea Nitrogen 17 mg/dl (7-17); Calcium 8.9 mg/dl (8.4-10.2); Carbon Dioxide 28 mmol/L (22.0-30.0); Chloride 104 mmol/L (98-107); Chol/HDL Ratio 2.8 (1-3.5); Cholesterol 175 mg/dl (140-200); Estimated Glomerular Filt Rate 74 ml/min (>60); GFR (African American) 89 ML/MIN (>60); Globulin 2.6 g/dL (1.3-3.2); Glucose 117 mg/dl (74-100); HDL Cholesterol 63 mg/dl (40-60); Potassium 4.4 mmoL/L (3.5-5.1); Sodium 140 mmol/L (136-145); Total Protein,Serum 6.6 g/dl (6.3-8.2); Triglycerides 95 mg/dl (30-150); VLDL Cholesterol 19 mg/dL (0-40)
[2023-01-30 20:06] LABS: Free T4 (Free Thyroxine) 1.51 ng/dl (0.78-2.19)
[2023-01-30 20:21] LABS: Hemoglobin A1C 5.6 % (4.0-6.0)
[2023-01-30 20:35] LABS: Thyroid Stimulating Hormone 0.68 uIU/mL (0.465-4.68)
[2023-01-30 21:29] LABS: Microalbumin/Creatinine Ratio 8.5
[2023-01-30 21:31] LABS: Creatinine,Urine Random 92 mg/dL (Not Estab.)
== END ==
PROVIDERS: PCP Nurse Practitioner; Visit Provider Nurse Practitioner
DX: E03.9 Hypothyroidism, unspecified (principal); E11.9 Type 2 diabetes mellitus without complications; Z79.84 Long term (current) use of oral hypoglycemic drugs
CPT/HCPCS: 80053; 80061; 82043; 82570; 83036; 84439; 84443; 85025

== ENCOUNTER 2023-09-02 07:58 | Outpatient (CLI) | payer BC, SELFPAY ==
[2023-09-02 09:12] LABS: Basophils # 0.1 K/mm3 (0-0.2); Basophils % 0.8 % (0.1-2.0); Eosinophils # 0.2 K/mm3 (0.0-0.4); Eosinophils % 2.5 % (0.1-12.0); Hematocrit 42.6 % (37.0-47.0); Hemoglobin 14.9 g/dL (12.2-16.2); Lymphocytes # 1.5 K/mm3 (0.7-4.5); Lymphocytes % 23.6 % (10-50); Mean Corpuscular HGB Conc 35.1 g/dL (31.8-35.4); Mean Corpuscular Hemoglobin 30.4 pg (27.0-31.2); Mean Corpuscular Volume 86.5 fl (81-99); Mean Platelet Volume 7.5 fl (7.4-10.4); Monocytes # 0.4 K/mm3 (0.1-1.0); Monocytes % 6.9 % (1.7-9.3); Neutrophils # 4.1 K/mm3 (1.8-7.8); Neutrophils % 66.1 % (37.0-80.0); Platelet Count 306 K/mm3 (142-424); Red Blood Count 4.92 M/mm3 (4.20-5.40); Red Cell Distribution Width 12.8 % (11.5-17.5); White Blood Count 6.2 K/mm3 (4.8-10.8)
[2023-09-02 09:15] LABS: Hemoglobin A1C 5.5 % (4.0-6.0)
[2023-09-02 09:21] LABS: Creatinine,Urine Random 333 mg/dL (Not Estab.)
[2023-09-02 09:39] LABS: Alanine Aminotransferase 21 U/L (12-78); Albumin/Globulin Ratio 1.7 (1.1-1.8); Alkaline Phosphatase 80 U/L (38-126); Anion Gap 11.5 mEq/L (5-15); Aspartate Amino Transferase 24 U/L (14-36); Bilirubin,Total 0.4 mg/dl (0.2-1.3); Blood Urea Nitrogen 20 mg/dl (7-17); Calcium 9.4 mg/dl (8.4-10.2); Carbon Dioxide 26 mmol/L (22.0-30.0); Chloride 107 mmol/L (98-107); Chol/HDL Ratio 3.2 (1-3.5); Cholesterol 155 mg/dl (140-200); Estimated Glomerular Filt Rate 65 ml/min (>60); GFR (African American) 78 ML/MIN (>60); Globulin 2.4 g/dL (1.3-3.2); Glucose 97 mg/dl (74-100); HDL Cholesterol 48 mg/dl (40-60); Potassium 4.5 mmoL/L (3.5-5.1); Sodium 140 mmol/L (136-145); Total Protein,Serum 6.4 g/dl (6.3-8.2); Triglycerides 59 mg/dl (30-150); VLDL Cholesterol 12 mg/dL (0-40)
[2023-09-02 09:50] LABS: Direct LDL Cholesterol 80.75 mg/dL (100-129)
[2023-09-02 09:56] LABS: Free T4 (Free Thyroxine) 1.56 ng/dl (0.78-2.19)
[2023-09-02 10:10] LABS: Thyroid Stimulating Hormone 0.35 uIU/mL (0.465-4.68)
[2023-09-02 10:29] LABS: Vitamin B12 679 pg/mL (239-931)
== END 2023-09-02 23:59 ==
LOC: LAB 07:59
PROVIDERS: PCP Nurse Practitioner; Visit Provider Nurse Practitioner
DX: E03.9 Hypothyroidism, unspecified (principal); E11.9 Type 2 diabetes mellitus without complications; E66.9 Obesity, unspecified; Z68.32 Body mass index [BMI] 32.0-32.9, adult; Z79.899 Other long term (current) drug therapy
CPT/HCPCS: 36415; 80053; 80061; 82043; 82306; 82570; 82607; 83036; 84439; 84443; 85025

== ENCOUNTER 2023-11-19 13:12 | Emergency (ER) | payer BC, SELFPAY ==
[2023-11-19 14:10] VITALS: BP 141/80; PULSE 85; RESP 19; TEMP 36.5; O2SAT 98; BMI 35.0
--- NOTE | 2023-11-19 14:18 | EXP.UTC ---
Discharge Plan Disposition Patient Disposition: Home, Self-Care Condition: Good Prescriptions Prescriptions: New fluticasone propionate [Flonase Allergy Relief] 50 mcg/actuation spray,suspension 2 spray intranasal DAILY Qty: 16 0RF Rx Instructions: administer into each nostril methylprednisolone [Medrol (Chemo)] 4 mg tablets,dose pack See Rx Instructions .Route .COMPLEX 6 Days Qty: 21 0RF Rx Instructions: taper pack; amoxicillin-pot clavulanate 875-125 mg Tablet 1 tab PO Q12H Qty: 20 0RF No Action (DME) pen needle, diabetic [BD Ultra-Fine Micro Pen Needle] 32 gauge x 1/4 needle See Rx Instructions .Route Qty: 8 2RF Rx Instructions: As directed famotidine 10 mg tablet 10 mg PO DAILY semaglutide 0.25 mg or 0.5 mg(2 mg/1.5 mL) pen injector 0.5 mg SQ WEEKLY Qty: 1.5 5RF Rx Instructions: for 4 doses levothyroxine 112 mcg tablet See Rx Instructions .ROUTE .COMPLEX Qty: 90 1RF Dose Instruction: Take 1 Tablet by mouth once daily for thyroid. Rx Instructions: Take 1 Tablet by mouth once daily for thyroid. sertraline 50 mg tablet See Rx Instructions .ROUTE .COMPLEX Qty: 135 1RF Dose Instruction: Take 1.5 Tablets by mouth once daily. Rx Instructions: Take 1.5 Tablets by mouth once daily. cetirizine 10 MG tablet 10 mg PO DAILY Referrals Follow up/Referrals: Radha Domínguez APRN [Primary Care Provider] - See instructions Activity Restrictions/Add. Instructions Additional Instructions/Restrictions: Monitor Temp, Over the counter Motrin or Tylenol as directed/as needed Tylenol every 4 hours and Motrin every 6 hours (as long as your family doctor has told you that you can take it) for fever or pain. and straight to ER if unable to lower temp less than 101.0 after medication given *Warm salt water gargles may help to soothe the throat *Throat Lozenges? *Warm fluids like tea with honey may help to soothe the throat? *Sleep elevated *Humidifier/Vaporizer Take medication as prescribed Follow up IMMEDIATELY for new or worsening symptoms or no Noticeable improvement over the next 48-72 hours. 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 by RN): PATIENT C/O SINUS PRESSURE, CONGESTION, DRAINAGE, EAR PAIN, AND HEADACHE X 4 DAYS HEENT Symptoms (Recalled from RN notes): Yes Resp Symptoms (Recalled from RN notes): No Skin Symptoms (Recalled from RN notes): No MS Symptoms (Recalled from RN notes): No Functional Status (Recalled from RN notes): WNL History of Present Illness Provider Complaint: Patient states that she started out about a week ago with nasal congestion and thought it was just allergies but for the last 4-5 days it has got worse States that she has been having sinus pain and pressure, pain and pressure in her ears, drainage in the back of her throat and headache States today she was having some pressure behind her eyes so she came in to get checked Related Data Home Medications Medication Instructions Recorded Confirmed cetirizine 10 mg tablet 10 mg PO DAILY Allergy symptoms 03/23/21 11/19/23 famotidine 10 mg tablet 10 mg PO DAILY 07/12/22 11/19/23 Previous Rx's Medication Instructions Recorded pen needle, diabetic 32 gauge x #8 ea 04/04/22 1/ (BD Ultra-Fine Micro Pen Needle) levothyroxine 112 mcg tablet See Rx Instructions .Route 08/16/23 .COMPLEX #90 tabs semaglutide 0.25 mg or 0.5 mg (2 0.5 mg (0.374 mL) SQ WEEKLY #1.5 mL 08/16/23 mg/1.5 mL) subcutaneous pen injector sertraline 50 mg tablet See Rx Instructions .Route 08/16/23 .COMPLEX #135 tabs amoxicillin 875 mg-potassium 1 tab PO Q12H #20 tabs 11/19/23 clavulanate 125 mg tablet fluticasone propionate 50 2 spray intranasal DAILY #16 grams 11/19/23 mcg/actuation nasal spray,suspension (Flonase Allergy Relief) methylprednisolone 4 mg tablets in See Rx Instructions .Route 11/19/23 a dose pack (Medrol (Chemo)) .COMPLEX 6 days #21 tabs Allergies Allergy/AdvReac Type Severity Reaction Status Date / Time naproxen [From Aleve] Allergy tounge Verified 08/16/23 15:47 swells Worker's Comp Is this a Worker's Comp case?: No [facility] Disclaimer: The information contained in this section may have been updated after the patient was seen, as this information can be updated by other users. 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 current occupational exposures/hazards: No caffeine: Yes ROS Obtained: Yes All systems reviewed & no additional complaints except as documented and Yes Systems reviewed as appropriate & no additional complaints except as documented Constitutional Constitutional: Reports system reviewed and no additional complaints, except as documented, Reports as per HPI and Reports headache(s) ENT Ears, Nose, Mouth, and Throat: Reports system reviewed and no additional complaints, except as documented, Reports as per HPI, Reports otalgia, Reports headache(s), Reports sinus pain and Reports sinus pressure Cardiovascular Cardiovascular: Reports system reviewed and no additional complaints, except as documented and Reports as per HPI Respiratory Respiratory: Reports system reviewed and no additional complaints, except as documented and Reports as per HPI Gastrointestinal Gastrointestingal: Reports system reviewed and no additional complaints, except as documented and as per HPI Neurologic Neurologic: Reports headache(s) Physical Exam General General appearance: alert and in no apparent distress ENT ENT exam: Present mucous membranes moist Expanded ENT Exam TM/Canal exam: Bilateral TM: erythema (mild redness noted) and bulging Nose exam: Present sinus tenderness Throat exam: Present other (Pharyngeal erythema noted with PND) Respiratory Respiratory exam: Present normal lung sounds bilaterally; Absent respiratory distress or wheezes Cardiovascular Cardiovascular exam: Present regular rate, normal rhythm and normal heart sounds Neurological Exam Neurological exam: Present alert, oriented X3 and normal gait Medical Decision Making Jag Inquiry Pt receiving controlled substance: No Jag was queried for this patient: No Vital Signs: 11/19/23 14:10 Temperature 97.7 F Temperature Source Oral Pulse Rate [Left Brachial] 85 Respiratory Rate 19 Blood Pressure [Left Arm] 141/80 H Blood Pressure Mean [Left Arm] 100 Blood Pressure Source [Left Arm] Automatic Cuff Blood Pressure Position [Left Arm] Sitting 02 Sat by Pulse Oximetry 98 Oxygen Delivery Method Room Air
[2023-11-19 14:23] VITALS: BP 141/80; PULSE 85; RESP 19; TEMP 36.5; O2SAT 98
== END 2023-11-19 14:28 | disposition home or self-care (01) ==
PROVIDERS: Emergency Provider Nurse Practitioner; PCP Nurse Practitioner
DX: J01.90 Acute sinusitis, unspecified (principal); R51.9 Headache, unspecified; H92.09 Otalgia, unspecified ear; R09.81 Nasal congestion; E03.9 Hypothyroidism, unspecified
CPT/HCPCS: 99204; 99212; G0463

== ENCOUNTER 2023-11-29 21:22 | Emergency (ER) | payer BC, SELFPAY ==
[2023-11-29 21:24] VITALS: BP 141/74; PULSE 84; RESP 20; TEMP 37.1; O2SAT 98; BMI 32.3
--- NOTE | 2023-11-29 21:38 | HMH.EDGENADL ---
Discharge Plan Disposition Patient Disposition: Home, Self-Care Condition: Good Prescriptions Prescriptions: No Action (DME) pen needle, diabetic [BD Ultra-Fine Micro Pen Needle] 32 gauge x 1/4 needle See Rx Instructions .Route Qty: 8 2RF Rx Instructions: As directed famotidine 10 mg tablet 10 mg PO DAILY semaglutide 0.25 mg or 0.5 mg(2 mg/1.5 mL) pen injector 0.5 mg SQ WEEKLY Qty: 1.5 5RF Rx Instructions: for 4 doses levothyroxine 112 mcg tablet See Rx Instructions .ROUTE .COMPLEX Qty: 90 1RF Dose Instruction: Take 1 Tablet by mouth once daily for thyroid. Rx Instructions: Take 1 Tablet by mouth once daily for thyroid. sertraline 50 mg tablet See Rx Instructions .ROUTE .COMPLEX Qty: 135 1RF Dose Instruction: Take 1.5 Tablets by mouth once daily. Rx Instructions: Take 1.5 Tablets by mouth once daily. cetirizine 10 MG tablet 10 mg PO DAILY fluticasone propionate [Flonase Allergy Relief] 50 mcg/actuation spray,suspension 2 spray intranasal DAILY Qty: 16 0RF Rx Instructions: administer into each nostril methylprednisolone [Medrol (Chemo)] 4 mg tablets,dose pack See Rx Instructions .Route .COMPLEX 6 Days Qty: 21 0RF Rx Instructions: taper pack; amoxicillin-pot clavulanate 875-125 mg Tablet 1 tab PO Q12H Qty: 20 0RF Referrals Follow up/Referrals: Radha Domínguez APRN [Primary Care Provider] - See instructions Clinical Impressions Clinical Impression: Pain, dental Instructions Patient Instructions: DI for Dental Pain Discharge ED Provider: Lance Pedroza General Adult HPI <MATI Cuellar - Last Filed: 11/29/23 23:21> General Chief complaint: PAIN Stated complaint: cannot open jaw, poss tongue swelling Time Seen by Provider: 11/29/23 21:34 Mode of Arrival: Ambulatory Source of Information: Patient Limitations: No Limitations Description of Symptoms (Recalled from ER Triage Doc. by RN): Patient reports 2 weeks ago she was dx with sinus infection and was given steriod/augmentin to take. Patient also reports last monday she broke a tooth and was seen by a dentist. Today patient reports jaw pain and unable to fully open and thinks her tongue is swollen. Patient reports pain if she tries to open it. History of Present Illness HPI narrative: Patient presents for increased pain of the mandible and a sensation of her tongue swelling. Patient had a diagnosis of a sinus infection approximately 2 weeks ago and was placed on antibiotics initially for that and very soon after had a fracture of the tooth. That was repaired by her dentist and has been off of antibiotics now for approximately 2 days. Patient was doing well until last night and she started noticing increasing pain on the right side of her mouth in the same area of the previous injury and has had day long progression of feeling like her tongue is swelling and having difficulty with speaking. Patient however denies any difficulty swallowing breathing chest pain fever chills hemoptysis hematochezia melena nausea vomit diarrhea. Related Data Home Medications Medication Instructions Recorded Confirmed cetirizine 10 mg tablet 10 mg PO DAILY Allergy symptoms 03/23/21 11/19/23 famotidine 10 mg tablet 10 mg PO DAILY 07/12/22 11/19/23 Previous Rx's Medication Instructions Recorded pen needle, diabetic 32 gauge x #8 ea 04/04/2208/10 (BD Ultra-Fine Micro Pen Needle) levothyroxine 112 mcg tablet See Rx Instructions .Route 08/16/23 .COMPLEX #90 tabs semaglutide 0.25 mg or 0.5 mg (2 0.5 mg (0.374 mL) SQ WEEKLY #1.5 mL 08/16/23 mg/1.5 mL) subcutaneous pen injector sertraline 50 mg tablet See Rx Instructions .Route 08/16/23 .COMPLEX #135 tabs amoxicillin 875 mg-potassium 1 tab PO Q12H #20 tabs 11/19/23 clavulanate 125 mg tablet fluticasone propionate 50 2 spray intranasal DAILY #16 grams 11/19/23 mcg/actuation nasal spray,suspension (Flonase Allergy Relief) methylprednisolone 4 mg tablets in See Rx Instructions .Route 11/19/23 a dose pack (Medrol (Chemo)) .COMPLEX 6 days #21 tabs Allergies Allergy/AdvReac Type Severity Reaction Status Date / Time naproxen [From Aleve] Allergy tounge Verified 08/16/23 15:47 mike [facility] <MATI Cuellar - Last Filed: 11/29/23 23:21> [facility] Disclaimer: The information contained in this section may have been updated after the patient was seen, as this information can be updated by other users. 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 current occupational exposures/hazards: No caffeine: Yes <MATI Cuellar - Last Filed: 11/29/23 23:21> ROS Obtained: Yes Systems reviewed as appropriate & no additional complaints except as documented Physical Exam <MATI Cuellar - Last Filed: 11/29/23 23:21> General General appearance: alert and in no apparent distress Head Head exam: atraumatic and normal inspection Eye Eye exam: Present normal appearance, PERRL and EOMI Chest Chest inspection: Present normal inspection and symmetric chest wall rise Respiratory Respiratory exam: Present normal lung sounds bilaterally; Absent respiratory distress Cardiovascular Cardiovascular exam: Present regular rate, normal rhythm and normal heart sounds Neurological Exam Neurological exam: Present alert and oriented X3 Skin Skin exam: Present warm, dry and normal color Other Other exam information: Examination of the oropharynx shows there is tenderness at the right mandible inferiorly. However there is no corresponding tenderness to palpation inside the oral cavity. Patient had the second molar repaired currently there is no evidence of erythema edema fluid collection skin changes. There is no fluctuance or abscess able to be appreciated. No lymphadenopathy noted. In regards to the patient's tongue I do not appreciate any obvious edema or fullness and tongue is able to be held inside close mouth with normal alignment. I am able to see into the posterior pharynx without significant difficulty. Medical Decision Making <MATI Cuellar - Last Filed: 11/29/23 23:21> Medical Records Medical records reviewed: Yes I reviewed the patient's medical records. Jag Inquiry Pt receiving controlled substance: No Vital Signs: 11/29/23 21:24 11/29/23 22:30 11/29/23 23:59 Temperature 98.8 F 98.7 F Temperature Source Oral Oral Pulse Rate 75 73 Pulse Rate [Right Radial] 84 Respiratory Rate 20 18 Blood Pressure 152/88 H 142/87 H Blood Pressure [Right Arm] 141/74 H Blood Pressure Mean 101 Blood Pressure Mean [Right Arm] 96 Blood Pressure Source Automatic Cuff Blood Pressure Source [Right Arm] Automatic Cuff Blood Pressure Position Supine Blood Pressure Position [Right Arm] Supine 02 Sat by Pulse Oximetry 98 98 Oxygen Delivery Method Room Air Room Air Room Air Lab Data Lab results reviewed: Yes I reviewed the patient's lab results. Lab Results 11/29/23 22:30: WBC 8.2, RBC 4.55, Hgb 13.7, Hct 40.5, MCV 88.9, MCH 30.0, MCHC 33.8, RDW 13.6, Plt Count 292, MPV 7.6, Neut % (Auto) 57.9, Lymph % (Auto) 30.0, [place] % (Auto) 6.3, Eos % (Auto) 4.8, Baso % (Auto) 1.0, Neut # (Auto) 4.8, Lymph # (Auto) 2.5, [place] # (Auto) 0.5, Eos # (Auto) 0.4, Baso # (Auto) 0.1, Sodium 140, Potassium 3.7, Chloride 107, Carbon Dioxide 28, Anion Gap 8.7, BUN 24 H, Creatinine 0.90, Estimated Creat Clear 98, Estimated GFR 64, Est GFR ( Amer) 78, Glucose 118 H, Calcium 9.0, C-Reactive Protein 4.1 H 11/29/23 22:30 11/29/23 22:30 Orders (Tests/Meds): ED MEDICATIONS Discontinued Medications Generic Name Dose Route Start Last Admin Trade Name Freq PRN Reason Stop Dose Admin Acetaminophen 1,000 mg 11/29/23 21:48 11/29/23 22:02 Acetaminophen 1,000mg/100ml Vial IV 11/29/23 21:49 1,000 mg ONCE ONE Administration Dexamethasone Sodium Phosphate 10 mg 11/29/23 21:48 11/29/23 22:02 Dexamethasone 4mg/Ml 5ml Mdv IV 11/29/23 21:49 10 mg ONCE ONE Administration Diphenhydramine HCl 50 mg 11/29/23 21:48 11/29/23 22:02 Diphenhydramine 50mg/Ml Vial IV 11/29/23 21:49 50 mg ONCE ONE Administration Iopamidol 100 ml 11/29/23 23:02 11/29/23 23:02 Iopamidol-370 (76%);100ml Bottle IV 11/29/23 23:03 100 ml ONCE ONE Administration Sodium Chloride 10 ml 11/29/23 23:02 11/29/23 23:02 Sodium Chloride 0.9% 10ml Syr (Rad Only) IV 11/29/23 23:03 10 ml ONCE ONE Administration ORDERS Category Date Time Status CT facial bones w con Stat Cat Scan 11/29/23 21:51 Completed BMP [Basic Metabolic Panel] Stat Lab 11/29/23 22:30 Completed CBC w/Auto Diff [Complete Blood Count Auto Diff] Stat Lab 11/29/23 22:30 Completed CRP [C-Reactive Protein] Stat Lab 11/29/23 22:30 Completed Medical Decision Narrative: In summary patient is a 58-year-old female who presents to the emergency department for evaluation of right jaw pain and subjective tongue swelling. Patient is hemodynamically stable upon arrival, afebrile. Physical exam is remarkable for tenderness to palpation in the right inferior aspect of the mandible underneath the previously repaired first molar the right lower but no obvious fluid collection noted. Exam is also remarkable for what appears to be abnormal appearing tongue with no airway compromise however patient subjectively feels like it swelling and affecting her ability to talk. Differential diagnosis includes postoperative pain versus osteomyelitis versus bony destruction versus deep space neck abscess.. Initial workup will be conducted with CT scan of the head and neck with contrast and hematologic labs. Initial intervention is Decadron and acetaminophen tablets and IV access. Initial workup is pending at the time of handoff to Dr. Banerjee at 2300 hrs. <Phoenix Banerjee MD - Last Filed: 11/30/23 00:02> Vital Signs: 11/29/23 21:24 11/29/23 22:30 11/29/23 23:59 Temperature 98.8 F 98.7 F Temperature Source Oral Oral Pulse Rate 75 73 Pulse Rate [Right Radial] 84 Respiratory Rate 20 18 Blood Pressure 152/88 H 142/87 H Blood Pressure [Right Arm] 141/74 H Blood Pressure Mean 101 Blood Pressure Mean [Right Arm] 96 Blood Pressure Source Automatic Cuff Blood Pressure Source [Right Arm] Automatic Cuff Blood Pressure Position Supine Blood Pressure Position [Right Arm] Supine 02 Sat by Pulse Oximetry 98 98 Oxygen Delivery Method Room Air Room Air Room Air Lab Data Lab Results 11/29/23 22:30: WBC 8.2, RBC 4.55, Hgb 13.7, Hct 40.5, MCV 88.9, MCH 30.0, MCHC 33.8, RDW 13.6, Plt Count 292, MPV 7.6, Neut % (Auto) 57.9, Lymph % (Auto) 30.0, [place] % (Auto) 6.3, Eos % (Auto) 4.8, Baso % (Auto) 1.0, Neut # (Auto) 4.8, Lymph # (Auto) 2.5, [place] # (Auto) 0.5, Eos # (Auto) 0.4, Baso # (Auto) 0.1, Sodium 140, Potassium 3.7, Chloride 107, Carbon Dioxide 28, Anion Gap 8.7, BUN 24 H, Creatinine 0.90, Estimated Creat Clear 98, Estimated GFR 64, Est GFR ( Amer) 78, Glucose 118 H, Calcium 9.0, C-Reactive Protein 4.1 H Orders (Tests/Meds): ED MEDICATIONS Discontinued Medications Generic Name Dose Route Start Last Admin Trade Name Freq PRN Reason Stop Dose Admin Acetaminophen 1,000 mg 11/29/23 21:48 11/29/23 22:02 Acetaminophen 1,000mg/100ml Vial IV 11/29/23 21:49 1,000 mg ONCE ONE Administration Dexamethasone Sodium Phosphate 10 mg 11/29/23 21:48 11/29/23 22:02 Dexamethasone 4mg/Ml 5ml Mdv IV 11/29/23 21:49 10 mg ONCE ONE Administration Diphenhydramine HCl 50 mg 11/29/23 21:48 11/29/23 22:02 Diphenhydramine 50mg/Ml Vial IV 11/29/23 21:49 50 mg ONCE ONE Administration Iopamidol 100 ml 11/29/23 23:02 11/29/23 23:02 Iopamidol-370 (76%);100ml Bottle IV 11/29/23 23:03 100 ml ONCE ONE Administration Sodium Chloride 10 ml 11/29/23 23:02 11/29/23 23:02 Sodium Chloride 0.9% 10ml Syr (Rad Only) IV 11/29/23 23:03 10 ml ONCE ONE Administration ORDERS Category Date Time Status CT facial bones w con Stat Cat Scan 11/29/23 21:51 Completed BMP [Basic Metabolic Panel] Stat Lab 11/29/23 22:30 Completed CBC w/Auto Diff [Complete Blood Count Auto Diff] Stat Lab 11/29/23 22:30 Completed CRP [C-Reactive Protein] Stat Lab 11/29/23 22:30 Completed Medical Decision Narrative: In summary patient is a 58-year-old female who presents to the emergency department for evaluation of right jaw pain and subjective tongue swelling. Patient is hemodynamically stable upon arrival, afebrile. Physical exam is remarkable for tenderness to palpation in the right inferior aspect of the mandible underneath the previously repaired first molar the right lower but no obvious fluid collection noted. Exam is also remarkable for what appears to be abnormal appearing tongue with no airway compromise however patient subjectively feels like it swelling and affecting her ability to talk. Differential diagnosis includes postoperative pain versus osteomyelitis versus bony destruction versus deep space neck abscess.. Initial workup will be conducted with CT scan of the head and neck with contrast and hematologic labs. Initial intervention is Decadron and acetaminophen tablets and IV access. Initial workup is pending at the time of handoff to Dr. Banerjee at 2300 hrs. Chriss: I assumed care of this patient at 11 PM. Laboratory evaluation was notable for slightly elevated CRP at 4.1, but an otherwise normal CBC and CMP. CT scan of the face with contrast was unremarkable for any acute signs of infection or deeper abscess. On reevaluation the patient, patient noted that her pain had improved. Patient was asked to follow-up with her dentist given post operative pain. Patient was given strict return precautions to the ED should the patient develop any fevers, worsening swelling, pain, drainage. <Lance Pedroza MD - Last Filed: 11/30/23 15:21> Vital Signs: 11/29/23 21:24 11/29/23 22:30 11/29/23 23:59 Temperature 98.8 F 98.7 F Temperature Source Oral Oral Pulse Rate 75 73 Pulse Rate [Right Radial] 84 Respiratory Rate 20 18 Blood Pressure 152/88 H 142/87 H Blood Pressure [Right Arm] 141/74 H Blood Pressure Mean 101 Blood Pressure Mean [Right Arm] 96 Blood Pressure Source Automatic Cuff Blood Pressure Source [Right Arm] Automatic Cuff Blood Pressure Position Supine Blood Pressure Position [Right Arm] Supine 02 Sat by Pulse Oximetry 98 98 Oxygen Delivery Method Room Air Room Air Room Air Lab Data Lab Results 11/29/23 22:30: WBC 8.2, RBC 4.55, Hgb 13.7, Hct 40.5, MCV 88.9, MCH 30.0, MCHC 33.8, RDW 13.6, Plt Count 292, MPV 7.6, Neut % (Auto) 57.9, Lymph % (Auto) 30.0, [place] % (Auto) 6.3, Eos % (Auto) 4.8, Baso % (Auto) 1.0, Neut # (Auto) 4.8, Lymph # (Auto) 2.5, [place] # (Auto) 0.5, Eos # (Auto) 0.4, Baso # (Auto) 0.1, Sodium 140, Potassium 3.7, Chloride 107, Carbon Dioxide 28, Anion Gap 8.7, BUN 24 H, Creatinine 0.90, Estimated Creat Clear 98, Estimated GFR 64, Est GFR ( Amer) 78, Glucose 118 H, Calcium 9.0, C-Reactive Protein 4.1 H Orders (Tests/Meds): ED MEDICATIONS Discontinued Medications Generic Name Dose Route Start Last Admin Trade Name Arnaudq PRN Reason Stop Dose Admin Acetaminophen 1,000 mg 11/29/23 21:48 11/29/23 22:02 Acetaminophen 1,000mg/100ml Vial IV 11/29/23 21:49 1,000 mg ONCE ONE Administration Dexamethasone Sodium Phosphate 10 mg 11/29/23 21:48 11/29/23 22:02 Dexamethasone 4mg/Ml 5ml Mdv IV 11/29/23 21:49 10 mg ONCE ONE Administration Diphenhydramine HCl 50 mg 11/29/23 21:48 11/29/23 22:02 Diphenhydramine 50mg/Ml Vial IV 11/29/23 21:49 50 mg ONCE ONE Administration Iopamidol 100 ml 11/29/23 23:02 11/29/23 23:02 Iopamidol-370 (76%);100ml Bottle IV 11/29/23 23:03 100 ml ONCE ONE Administration Sodium Chloride 10 ml 11/29/23 23:02 11/29/23 23:02 Sodium Chloride 0.9% 10ml Syr (Rad Only) IV 11/29/23 23:03 10 ml ONCE ONE Administration ORDERS Category Date Time Status CT facial bones w con Stat Cat Scan 11/29/23 21:51 Completed BMP [Basic Metabolic Panel] Stat Lab 11/29/23 22:30 Completed CBC w/Auto Diff [Complete Blood Count Auto Diff] Stat Lab 11/29/23 22:30 Completed CRP [C-Reactive Protein] Stat Lab 11/29/23 22:30 Completed Medical Decision Narrative: In summary patient is a 58-year-old female who presents to the emergency department for evaluation of right jaw pain and subjective tongue swelling. Patient is hemodynamically stable upon arrival, afebrile. Physical exam is remarkable for tenderness to palpation in the right inferior aspect of the mandible underneath the previously repaired first molar the right lower but no obvious fluid collection noted. Exam is also remarkable for what appears to be abnormal appearing tongue with no airway compromise however patient subjectively feels like it swelling and affecting her ability to talk. Differential diagnosis includes postoperative pain versus osteomyelitis versus bony destruction versus deep space neck abscess.. Initial workup will be conducted with CT scan of the head and neck with contrast and hematologic labs. Initial intervention is Decadron and acetaminophen tablets and IV access. Initial workup is pending at the time of handoff to Dr. Banerjee at 2300 hrs. Chriss: I assumed care of this patient at 11 PM. Laboratory evaluation was notable for slightly elevated CRP at 4.1, but an otherwise normal CBC and CMP. CT scan of the face with contrast was unremarkable for any acute signs of infection or deeper abscess. On reevaluation the patient, patient noted that her pain had improved. Patient was asked to follow-up with her dentist given post operative pain. Patient was given strict return precautions to the ED should the patient develop any fevers, worsening swelling, pain, drainage. Because patient at baseline without signs or symptoms of clinical decompensation, deemed appropriate for discharge. Results were relayed to patient who voiced understanding and were agreeable to outpatient management and follow up. I discussed my clinical impression with patient and answered all questions. At this time, the evidence for any other entities in the differential is insufficient to warrant any further testing or ED observation. This was explained as well. Advisory was given that persistent or worsening symptoms require further evaluation. I confirmed the understanding of this discussion. Critical Care <MATI Cuellar - Last Filed: 11/29/23 23:21> Critical Care Time Critical Care Time: No
--- NOTE | 2023-11-29 21:51 | CT_ITS ---
PROCEDURE INFORMATION: Exam: CT Maxillofacial With Contrast Exam date and time: 11/29/2023 10:55 PM Age: 58 years old Clinical indication: Jaw pain and other: Tongue; Patient HX: Pain on the right; Additional info: Mandible pain/ tongue swell after dental procedure TECHNIQUE: Imaging protocol: Computed tomography of the face with contrast. Radiation optimization: All CT scans at this facility use at least one of these dose optimization techniques: automated exposure control; mA and/or kV adjustment per patient size (includes targeted exams where dose is matched to clinical indication); or iterative reconstruction. Contrast material: ISOVUE; Contrast volume: 100 ml; Contrast route: IV; COMPARISON: No relevant prior studies available. FINDINGS: Orbital cavities: Orbits are normal. Globes are unremarkable. Bones/joints: No acute fracture. Small torus palatinus. Mild right temporomandibular joint degenerative changes Paranasal sinuses: Minimal left maxillary sinus mucosal thickening. No air-fluid levels. Soft tissues: Unremarkable. Dental: Small tooth # 15 periapical lucency at the mesiobuccal root. IMPRESSION: No acute findings.
[2023-11-29] MEDS: DEXAMETHASONE 4MG/ML 5ML MDV 10 MG IV (22:02)
[2023-11-29] MEDS: diphenhydrAMINE 50MG/ML VIAL 50 MG IV (22:02)
[2023-11-29] MEDS: ACETAMINOPHEN 1,000MG/100ML VIAL 1000 MG IV (22:02)
[2023-11-29 22:30] VITALS: BP 152/88; PULSE 75; O2SAT 98
[2023-11-29 22:38] LABS: Basophils # 0.1 K/mm3 (0-0.2); Eosinophils # 0.4 K/mm3 (0.0-0.4); Eosinophils % 4.8 % (0.1-12.0); Hematocrit 40.5 % (37.0-47.0); Hemoglobin 13.7 g/dL (12.2-16.2); Lymphocytes # 2.5 K/mm3 (0.7-4.5); Mean Corpuscular HGB Conc 33.8 g/dL (31.8-35.4); Mean Corpuscular Volume 88.9 fl (81-99); Mean Platelet Volume 7.6 fl (7.4-10.4); Monocytes # 0.5 K/mm3 (0.1-1.0); Monocytes % 6.3 % (1.7-9.3); Neutrophils # 4.8 K/mm3 (1.8-7.8); Neutrophils % 57.9 % (37.0-80.0); Platelet Count 292 K/mm3 (142-424); Red Blood Count 4.55 M/mm3 (4.20-5.40); Red Cell Distribution Width 13.6 % (11.5-17.5); White Blood Count 8.2 K/mm3 (4.8-10.8)
[2023-11-29 22:43] LABS: Chloride 107 mmol/L (98-107)
[2023-11-29 22:44] LABS: Potassium 3.7 mmoL/L (3.5-5.1); Sodium 140 mmol/L (136-145)
[2023-11-29 22:46] LABS: Blood Urea Nitrogen 24 mg/dl (7-17); Creatinine Clearance Estimated 98 mL/min (50-200); Estimated Glomerular Filt Rate 64 ml/min (>60); GFR (African American) 78 ML/MIN (>60)
[2023-11-29 22:47] LABS: Anion Gap 8.7 mEq/L (5-15); Carbon Dioxide 28 mmol/L (22.0-30.0); Glucose 118 mg/dl (74-100)
[2023-11-29 22:52] LABS: C-Reactive Protein 4.1 mg/L (0-4)
[2023-11-29] MEDS: IOPAMIDOL-370 (76%);100ML BOTTLE 100 ML IV (23:02)
[2023-11-29] MEDS: SODIUM CHLORIDE 0.9% 10ML SYR (RAD ONLY) 10 ML IV (23:02)
[2023-11-29 23:59] VITALS: BP 142/87; PULSE 73; RESP 18; TEMP 37.1; O2SAT 98
== END 2023-11-30 00:06 | disposition home or self-care (01) ==
PROVIDERS: Physician Assistant; Emergency Provider Emergency Medicine; PCP Nurse Practitioner
DX: R68.84 Jaw pain (principal); K08.89 Other specified disorders of teeth and supporting structures; E03.9 Hypothyroidism, unspecified
CPT/HCPCS: 70487; 80048; 85025; 86140; 96374; 96375; 99284; J0131; Q9967

== ENCOUNTER 2023-12-20 10:24 | Outpatient (CLI) | payer BC, OTHER, SELFPAY ==
[2023-12-20 18:31] LABS: Eosinophils # 0.1 K/mm3 (0.0-0.4); Eosinophils % 3.6 % (0.1-12.0); Hematocrit 43.3 % (37.0-47.0); Lymphocytes # 1.3 K/mm3 (0.7-4.5); Lymphocytes % 34.5 % (10-50); Mean Corpuscular HGB Conc 32.2 g/dL (31.8-35.4); Mean Corpuscular Hemoglobin 29.6 pg (27.0-31.2); Mean Corpuscular Volume 91.9 fl (81-99); Mean Platelet Volume 8.8 fl (7.4-10.4); Monocytes # 0.4 K/mm3 (0.1-1.0); Monocytes % 9.6 % (1.7-9.3); Neutrophils % 51.3 % (37.0-80.0); Platelet Count 245 K/mm3 (142-424); Red Blood Count 4.71 M/mm3 (4.20-5.40); Red Cell Distribution Width 13.7 % (11.5-17.5); White Blood Count 3.8 K/mm3 (4.8-10.8)
[2023-12-20 18:52] LABS: C-Reactive Protein 5.1 mg/L (0-4)
[2023-12-20 19:51] LABS: Erythrocyte Sedimentation Rate 55 mm/hr (0-30)
[2023-12-22 14:12] LABS: Lyme Ab CIA Negative (Negative)
== END 2023-12-20 23:59 | disposition home or self-care (01) ==
LOC: LAB.DROPOF 12-22 10:25
PROVIDERS: PCP Nurse Practitioner; Visit Provider Nurse Practitioner
DX: L08.9 Local infection of the skin and subcutaneous tissue, unspecified (principal); S30.861A Insect bite (nonvenomous) of abdominal wall, initial encounter; W57.XXXA Bitten or stung by nonvenomous insect and other nonvenomous arthropods, initial encounter
CPT/HCPCS: 85025; 85651; 86140; 86618

== ENCOUNTER 2024-03-06 20:27 | Outpatient (CLI) | payer BC, OTHER, SELFPAY | END 2024-03-06 23:59 | disposition home or self-care (01) | LOC: LAB.DROPOF 20:28 | PROVIDERS: PCP Nurse Practitioner; Visit Provider Nurse Practitioner | DX: Z02.9 Encounter for administrative examinations, unspecified (principal) ==

== ENCOUNTER 2024-03-06 20:31 | Outpatient (CLI) | payer BC, OTHER, SELFPAY ==
[2024-03-06 22:05] LABS: Alanine Aminotransferase 29 U/L (12-78); Albumin Level 3.9 g/dl (3.5-5.0); Albumin/Globulin Ratio 1.4 (1.1-1.8); Alkaline Phosphatase 85 U/L (38-126); Anion Gap 10.2 mEq/L (5-15); Aspartate Amino Transferase 29 U/L (14-36); Bilirubin,Total 0.4 mg/dl (0.2-1.3); Blood Urea Nitrogen 20 mg/dl (7-17); Carbon Dioxide 23 mmol/L (22.0-30.0); Chloride 110 mmol/L (98-107); Cholesterol 180 mg/dl (140-200); Estimated Glomerular Filt Rate 74 ml/min (>60); GFR (African American) 89 ML/MIN (>60); Globulin 2.7 g/dL (1.3-3.2); Glucose 102 mg/dl (74-100); HDL Cholesterol 60 mg/dl (40-60); Potassium 4.2 mmoL/L (3.5-5.1); Sodium 139 mmol/L (136-145); Total Protein,Serum 6.6 g/dl (6.3-8.2); Triglycerides 63 mg/dl (30-150); VLDL Cholesterol 13 mg/dL (0-40)
[2024-03-06 22:06] LABS: Microalbumin/Creatinine Ratio 5.4
[2024-03-06 22:16] LABS: Direct LDL Cholesterol 93.28 mg/dL (100-129)
[2024-03-06 22:19] LABS: Creatinine,Urine Random 244 mg/dL (Not Estab.)
[2024-03-06 22:24] LABS: Free T4 (Free Thyroxine) 1.28 ng/dl (0.78-2.19)
[2024-03-06 22:26] LABS: 25-OH Vitamin D, Total 36.5 ng/mL (30-100)
[2024-03-06 22:36] LABS: Thyroid Stimulating Hormone 0.82 uIU/mL (0.465-4.68)
[2024-03-06 22:47] LABS: Hemoglobin A1C 5.4 % (4.0-6.0)
[2024-03-06 22:55] LABS: Vitamin B12 689 pg/mL (239-931)
== END 2024-03-06 23:59 | disposition home or self-care (01) ==
LOC: LAB.DROPOF 20:33
PROVIDERS: PCP Nurse Practitioner; Visit Provider Nurse Practitioner
DX: E11.9 Type 2 diabetes mellitus without complications (principal); Z79.85 Long-term (current) use of injectable non-insulin antidiabetic drugs; E03.9 Hypothyroidism, unspecified
CPT/HCPCS: 80053; 80061; 82043; 82306; 82570; 82607; 83036; 84439; 84443

== ENCOUNTER 2024-03-12 10:05 | Outpatient (CLI) | payer BC, OTHER, SELFPAY ==
--- NOTE | 2024-03-12 10:06 | CA_ITS ---
FINAL REPORT TECHNIQUE: Color Doppler, duplex Doppler and compression sonography of the right lower extremity venous system was performed. CLINICAL HISTORY: right posterior knee pain/swelling,knot right popliteal fossa,non-tender FINDINGS: There is no evidence of deep venous thrombosis from the level of the groin to the calf. The veins are patent and compressible. There is a 6.3 cm probable complex popliteal cyst. IMPRESSION: No evidence of deep venous thrombosis right lower extremity. Complex popliteal cyst. Reviewed, Interpreted and Dictated by Felton Mahajan III, MD Transcribed by Jewels Adkins Authenticated and [facility]
--- NOTE | 2024-03-12 10:26 | US_ITS ---
FINAL REPORT CLINICAL HISTORY: right posterior knee pain/swelling FINDINGS: Limited sonographic images of the right posterior knee were obtained. There is a fluid collection at the area of interest measuring 6.2 cm, may represent a complex popliteal cyst or other cyst. IMPRESSION: Complex popliteal cyst or other cyst. If indicated, MRI could further evaluate. Reviewed, Interpreted and Dictated by Felton Mahajan III, MD Transcribed by Jewels Adkins Authenticated and [facility]
== END 2024-03-12 23:59 | disposition home or self-care (01) ==
LOC: RT 10:06
PROVIDERS: PCP Nurse Practitioner; Visit Provider Nurse Practitioner
DX: M25.561 Pain in right knee (principal); M25.461 Effusion, right knee
CPT/HCPCS: 76882; 93971

== ENCOUNTER 2024-10-13 20:33 | Emergency (ER) | payer BC, OTHER, SELFPAY ==
--- NOTE | 2024-10-13 21:35 | ECG_ITS ---
APPROVED REPORT Exam: Resting ECG HR:63 bpm ECG Measurements Heart Rate 63 AXES MN 221 P 63 QRSd 83 QRS 5 QT 393 T 52 QTc 401 Conclusion SINUS RHYTHM WITH FIRST DEGREE AV BLOCK Electronically signed by : LIDIA VAUGHN, 10/13/2024 23:38:47
[2024-10-13 21:55] VITALS: BP 147/73; PULSE 67; RESP 18; TEMP 36.3; O2SAT 98; BMI 33.9
--- NOTE | 2024-10-13 22:03 | ED_ITS ---
Discharge Plan Disposition Patient Disposition: Home, Self-Care Condition: Good Prescriptions Prescriptions: New doxycycline hyclate 100 mg capsule 100 mg PO BID 5 Days Qty: 10 0RF No Action (DME) pen needle, diabetic [BD Ultra-Fine Micro Pen Needle] 32 gauge x 1/4 needle See Rx Instructions .Route Qty: 8 2RF Rx Instructions: As directed famotidine 10 mg tablet 10 mg PO DAILY levothyroxine 112 mcg tablet See Rx Instructions .ROUTE .COMPLEX Qty: 90 1RF Dose Instruction: Take 1 Tablet by mouth once daily for thyroid. Rx Instructions: Take 1 Tablet by mouth once daily for thyroid. sertraline 50 mg tablet See Rx Instructions .ROUTE .COMPLEX Qty: 135 1RF Dose Instruction: Take 1.5 Tablets by mouth once daily. Rx Instructions: Take 1.5 Tablets by mouth once daily. cetirizine 10 MG tablet 10 mg PO DAILY fluticasone propionate [Flonase Allergy Relief] 50 mcg/actuation spray,suspension 2 spray intranasal DAILY Qty: 16 0RF Rx Instructions: administer into each nostril Referrals Follow up/Referrals: Radha Domínguez APRN [Primary Care Provider] - See instructions Activity Restrictions/Add. Instructions Additional Instructions/Restrictions: I have sent a prescription for a course of antibiotics to your pharmacy. Please use the inhaler you were given in the emergency department as needed. Please take Tylenol and ibuprofen and follow-up with your primary care doctor. Please return with any new or worsening symptoms. Clinical Impressions Clinical Impression: CAP (community acquired pneumonia) Print Language Print Language: Slovenian Discharge ED Provider: Dino Quiñonez General Adult HPI General Chief complaint: Upper Respiratory Infection Stated complaint: SOA, PALMER, diarrhea body aches Time Seen by Provider: 10/13/24 22:03 Mode of Arrival: Ambulatory Source of Information: Patient Description of Symptoms (Recalled from ER Triage Doc. by RN): Pt to ED with c/o cough, congestion, body aches that started monday. and diarrhea and decreased appetite that started today. pt reports chest tightness as well. History of Present Illness HPI narrative: Patient presents for evaluation of cough congestion myalgias starting today, she also describes bilateral otalgia. No fevers or chills. No difficulty tolerating secretions or dysphagia. No previous therapies. Patient has had known sick contacts. Denies any chest pain for me. Please note that above description of symptoms, in this electronic medical record under categorization of recalled from ER triage doctor by RN are reflective of an initial nursing assessment, however, is not reflective of my full history and physical exam that was personally taken and clarified. Consequentially, this preceding description of symptoms, which may include the patient's categorized chief complaint in the EMR, do not reflect my personal clinical impression, and the ultimate description of history of present illness and patient stated complaints should be deferred to this section of the note. Unless stated otherwise or congruent with this section of the note, additional signs, symptoms, or incongruence should be interpreted as inaccurate with my clinical impression. Related Data Home Medications ?Medication ?Instructions ?Recorded ?Confirmed cetirizine 10 mg tablet 10 mg PO DAILY Allergy symptoms 03/23/21 10/14/24 famotidine 10 mg tablet 10 mg PO DAILY 07/12/22 10/14/24 Previous Rx's ?Medication ?Instructions ?Recorded pen needle, diabetic 32 gauge x #8 ea 04/04/2208/10 (BD Ultra-Fine Micro Pen Needle) fluticasone propionate 50 2 spray intranasal DAILY #16 grams 11/19/23 mcg/actuation nasal spray,suspension (Flonase Allergy Relief) levothyroxine 112 mcg tablet See Rx Instructions .Route 06/13/24 .COMPLEX #90 tabs sertraline 50 mg tablet See Rx Instructions .Route 10/04/24 .COMPLEX #135 tabs doxycycline hyclate 100 mg capsule 100 mg PO BID 5 days #10 caps 10/13/24 Allergies Allergy/AdvReac Type Severity Reaction Status Date / Time naproxen (From Aleve) Allergy tounge [facility]14/24 15[facility] Disclaimer: The information contained in this section may have been updated after the patient was seen, as this information can be updated by other users. Medical History (Updated 10/14/24 @ 15:35 by Radha Domínguez APRN) Exercise induced bronchospasm Soft tissue swelling of knee joint Posterior right knee pain Acquired hypothyroidism Anxiety Acquired central hypothyroidism Thickened endometrium Surgical History History of thyroidectomy History of D&C History of Family History Other Diabetes Hypertension Social History Smoking Status: Never smoker second hand exposure: No alcohol intake: current alcohol intake frequency: a few times a month substance use type: denies use current occupational status: employed Travel in the last 8 weeks: None household members: spouse and family housing: house 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 current occupational exposures/hazards: No caffeine: Yes Other Medical History Have you received the Flu Vaccine for this season: Yes (2019) Have you received the Pneumonia Vaccine: No ROS Obtained: Yes other As per HPI Physical Exam General General appearance: alert and in no apparent distress Head Head exam: atraumatic and normocephalic Eye Eye exam: Present normal appearance Neck Neck exam: Present normal inspection Chest Chest inspection: Present normal inspection and symmetric chest wall rise Respiratory Respiratory exam: Present normal lung sounds bilaterally; Absent respiratory distress Cardiovascular Cardiovascular exam: Present regular rate and normal rhythm Abdominal Exam Abdominal exam: Present soft Neurological Exam Neurological exam: Present alert and oriented X3 Psychiatric Psychiatric exam: Present normal affect and normal mood Skin Skin exam: Present warm and dry Other Other exam information: Bilateral tympanic membranes bulging and erythematous, oropharynx erythematous Medical Decision Making Medical Records Medical records reviewed: Yes I reviewed the patient's medical records. Screening: Per USPSTF and CDC recommendations, given the prevalence of disease in our region, it is our hospital?s policy to screen for HIV and viral Hepatitis for all patients aged 18 and over and those with ongoing risk factors. Jag Inquiry Pt receiving controlled substance: No Vital Signs: 10/13/24 21:55 10/13/24 22:30 10/13/24 23:00 Temperature 97.4 F L Temperature Source Oral Pulse Rate 71 79 Pulse Rate [Left Radial] 67 Respiratory Rate 18 Blood Pressure 151/83 H 148/98 H Blood Pressure [Right Arm] 147/73 H Blood Pressure Mean 101 111 Blood Pressure Mean [Right Arm] 97 Blood Pressure Source Blood Pressure Source [Right Arm] Automatic Cuff Blood Pressure Position Blood Pressure Position [Right Arm] Sitting 02 Sat by Pulse Oximetry 98 94 L 95 Oxygen Delivery Method Room Air 10/13/24 23:10 Temperature 97.9 F Temperature Source Oral Pulse Rate 74 Pulse Rate [Left Radial] Respiratory Rate 18 Blood Pressure 128/72 Blood Pressure [Right Arm] Blood Pressure Mean Blood Pressure Mean [Right Arm] Blood Pressure Source Automatic Cuff Blood Pressure Source [Right Arm] Blood Pressure Position Supine Blood Pressure Position [Right Arm] 02 Sat by Pulse Oximetry Oxygen Delivery Method Room Air Orders (Tests/Meds): ED MEDICATIONS Discontinued Medications Generic Name Dose Route Start Last Admin Trade Name Freq PRN Reason Stop Dose Admin Albuterol Sulfate 4 puff 10/13/24 23:02 10/13/24 23:05 Albuterol-Hfa 90mcg/Puff Inhaler 8gm IH 10/13/24 23:03 4 puff ONCE ONE Administration Miscellaneous 1 unit 10/13/24 23:02 10/13/24 23:06 Aerochamber/Optihaler MC 10/13/24 23:03 1 unit ONCE ONE Administration Medical Decision Narrative: Patient with history and exam per above presenting for evaluation of upper respiratory infection symptoms Diagnoses considered include URI, bronchitis,, otitis media ED workup and treatment included: ED MEDICATIONS Discontinued Medications Generic Name Dose Route Start Last Admin Trade Name Freq PRN Reason Stop Dose Admin Albuterol Sulfate 4 puff 10/13/24 23:02 10/13/24 23:05 Albuterol-Hfa 90mcg/Puff Inhaler 8gm IH 10/13/24 23:03 4 puff ONCE ONE Administration Miscellaneous 1 unit 10/13/24 23:02 10/13/24 23:06 Aerochamber/Optihaler MC 10/13/24 23:03 1 unit ONCE ONE Administration My clinical impression at this time is most consistent with otitis media I discussed my clinical impression with patient and answered all questions. At this time, the evidence for any other entities in the differential is insufficient to warrant any further testing or ED observation. This was explained to the patient. The patient was advised that persistent or worsening symptoms require further evaluation. Critical Care Critical Care Time Critical Care Time: No
[2024-10-13 22:30] VITALS: BP 151/83; PULSE 71; O2SAT 94
[2024-10-13 23:00] VITALS: BP 148/98; PULSE 79; O2SAT 95
[2024-10-13] MEDS: ALBUTEROL-HFA 90MCG/PUFF INHALER 8GM 4 PUFF IH (23:05)
[2024-10-13] MEDS: AEROCHAMBER/OPTIHALER 1 UNIT MC (23:06)
[2024-10-13 23:10] VITALS: BP 128/72; PULSE 74; RESP 18; TEMP 36.6; O2SAT 98
== END 2024-10-13 23:10 | disposition home or self-care (01) ==
PROVIDERS: Emergency Provider Emergency Medicine; PCP Nurse Practitioner
DX: J18.9 Pneumonia, unspecified organism (principal); R06.02 Shortness of breath; R51.9 Headache, unspecified; R07.89 Other chest pain; R05.9 Cough, unspecified; R09.81 Nasal congestion; M79.10 Myalgia, unspecified site; R19.7 Diarrhea, unspecified; R63.8 Other symptoms and signs concerning food and fluid intake; H92.03 Otalgia, bilateral
CPT/HCPCS: 93005; 99283

== ENCOUNTER 2024-10-21 09:50 | Outpatient (CLI) | payer BC, OTHER, SELFPAY ==
[2024-10-21 20:30] LABS: Alanine Aminotransferase 43 U/L (12-78); Albumin Level 4.3 g/dl (3.5-5.0); Albumin/Globulin Ratio 1.9 (1.1-1.8); Anion Gap 13.2 mEq/L (5-15); Aspartate Amino Transferase 32 U/L (14-36); Bilirubin,Total 0.5 mg/dl (0.2-1.3); Blood Urea Nitrogen 13 mg/dl (7-17); Calcium 9.3 mg/dl (8.4-10.2); Carbon Dioxide 23 mmol/L (22.0-30.0); Chloride 107 mmol/L (98-107); Cholesterol 151 mg/dl (140-200); Estimated Glomerular Filt Rate 64 ml/min (>60); GFR (African American) 78 ML/MIN (>60); Globulin 2.3 g/dL (1.3-3.2); Glucose 110 mg/dl (74-100); HDL Cholesterol 44 mg/dl (40-60); Potassium 4.2 mmoL/L (3.5-5.1); Sodium 139 mmol/L (136-145); Total Protein,Serum 6.6 g/dl (6.3-8.2); Triglycerides 89 mg/dl (30-150); VLDL Cholesterol 18 mg/dL (0-40)
[2024-10-21 20:31] LABS: Alkaline Phosphatase 93 U/L (38-126); Chol/HDL Ratio 3.4 (1-3.5)
[2024-10-21 20:42] LABS: Direct LDL Cholesterol 78.32 mg/dL (100-129)
[2024-10-21 20:55] LABS: Free T4 (Free Thyroxine) 2.04 ng/dl (0.78-2.19)
[2024-10-21 21:13] LABS: Thyroid Stimulating Hormone 1.14 uIU/mL (0.465-4.68)
[2024-10-21 21:31] LABS: Hemoglobin A1C 5.8 % (4.0-6.0)
[2024-10-21 21:32] LABS: Vitamin B12 754 pg/mL (239-931)
== END 2024-10-21 23:59 | disposition home or self-care (01) ==
LOC: LAB.DROPOF 10-23 07:35
PROVIDERS: PCP Nurse Practitioner; Visit Provider Nurse Practitioner
DX: E11.9 Type 2 diabetes mellitus without complications (principal); E03.9 Hypothyroidism, unspecified
CPT/HCPCS: 80053; 80061; 82607; 83036; 84439; 84443

== ENCOUNTER 2024-11-12 09:52 | Outpatient (CLI) | payer BC, OTHER, SELFPAY ==
[2024-11-12 18:52] LABS: Basophils # 0.1 K/mm3 (0-0.2); Basophils % 0.9 % (0.1-2.0); Eosinophils # 0.5 K/mm3 (0.0-0.4); Eosinophils % 7.3 % (0.1-12.0); Hematocrit 43.2 % (37.0-47.0); Hemoglobin 14.3 g/dL (12.2-16.2); Lymphocytes # 1.3 K/mm3 (0.7-4.5); Lymphocytes % 20.1 % (10-50); Mean Corpuscular HGB Conc 33.1 g/dL (31.8-35.4); Mean Corpuscular Hemoglobin 29.3 pg (27.0-31.2); Mean Corpuscular Volume 88.5 fl (81-99); Mean Platelet Volume 10.7 fl (7.4-10.4); Monocytes # 0.4 K/mm3 (0.1-1.0); Monocytes % 6.8 % (1.7-9.3); Neutrophils # 4.2 K/mm3 (1.8-7.8); Neutrophils % 64.7 % (37.0-80.0); Platelet Count 262 K/mm3 (142-424); Red Blood Count 4.88 M/mm3 (4.20-5.40); White Blood Count 6.5 K/mm3 (4.8-10.8)
[2024-11-12 19:36] LABS: Anion Gap 15.3 mEq/L (5-15); Blood Urea Nitrogen 15 mg/dl (7-17); Carbon Dioxide 20 mmol/L (22.0-30.0); Chloride 107 mmol/L (98-107); Potassium 4.3 mmoL/L (3.5-5.1); Sodium 138 mmol/L (136-145)
[2024-11-12 19:37] LABS: Alanine Aminotransferase 26 U/L (12-78); Albumin Level 4.1 g/dl (3.5-5.0); Albumin/Globulin Ratio 1.6 (1.1-1.8); Alkaline Phosphatase 87 U/L (38-126); Aspartate Amino Transferase 28 U/L (14-36); Bilirubin,Total 0.5 mg/dl (0.2-1.3); Calcium 9.2 mg/dl (8.4-10.2); Estimated Glomerular Filt Rate 64 ml/min (>60); GFR (African American) 78 ML/MIN (>60); Globulin 2.5 g/dL (1.3-3.2); Glucose 110 mg/dl (74-100); Total Protein,Serum 6.6 g/dl (6.3-8.2)
== END 2024-11-12 23:59 | disposition home or self-care (01) ==
LOC: LAB.DROPOF 11-13 09:47
PROVIDERS: PCP Nurse Practitioner; Visit Provider Nurse Practitioner
DX: J18.9 Pneumonia, unspecified organism (principal)
CPT/HCPCS: 80053; 85025

== ENCOUNTER 2024-12-06 14:54 | Outpatient (CLI) | payer BC, OTHER, SELFPAY ==
[2024-12-06] MEDS: ALBUTEROL 0.083% 2.5 MG/3 ML NEB IH (15:20)
--- NOTE | 2024-12-06 15:20 | PC.NURSE ---
Pre and Post Spirometry completed without incident. Albuterol 0.083% given via HHN, per written protocol, Pt tolerated tx well.
== END 2024-12-06 23:59 | disposition home or self-care (01) ==
LOC: RT 14:54
PROVIDERS: PCP Nurse Practitioner; Visit Provider Nurse Practitioner
DX: J45.990 Exercise induced bronchospasm (principal)
CPT/HCPCS: 94060; J7613

== ENCOUNTER 2024-12-09 15:02 | Outpatient (CLI) | payer BC, OTHER, SELFPAY ==
--- NOTE | 2024-12-09 15:00 | CT_ITS ---
FINAL REPORT TECHNIQUE: Thin section axial images were obtained from the thoracic inlet through the upper abdomen after intravenous contrast injection. Reconstruction images were obtained from the axial data. Exam was performed using dose reduction technique. CLINICAL HISTORY: pneumonia, cough, SOB COMPARISON: None FINDINGS: There is a small hypodense right thyroid nodule. The left thyroid is either very small or absent. There is no mediastinal, hilar, or axillary lymphadenopathy. There is no pleural or pericardial effusion. Granuloma is noted in the left lower lobe. There is atelectasis or scarring at both lung bases. The lungs are otherwise clear. There is no evidence of pneumonia. Limited evaluation of the upper abdomen demonstrates multiple small hypodense liver lesions favored to represent cysts. The remainder of the upper abdomen is without acute abnormality. There is an age-indeterminate right lateral sixth rib fracture. Several chronic left rib fractures are noted. IMPRESSION: No evidence of pneumonia. No acute intrathoracic abnormality. Age-indeterminate right sixth rib fracture. Reviewed, Interpreted and Dictated by Sheila Mcbride MD Transcribed by Landy Soto Authenticated and [facility]
[2024-12-09] MEDS: IOPAMIDOL-370 (76%);100ML BOTTLE 75 ML IV (15:35)
[2024-12-09] MEDS: SODIUM CHLORIDE 0.9% 10ML SYR (RAD ONLY) 10 ML IV (15:35)
== END 2024-12-09 23:59 | disposition home or self-care (01) ==
LOC: RAD 15:03
PROVIDERS: PCP Nurse Practitioner; Visit Provider Nurse Practitioner
DX: R05.9 Cough, unspecified (principal); R06.02 Shortness of breath
CPT/HCPCS: 71260; Q9967

== ENCOUNTER 2025-06-13 06:51 | Outpatient (CLI) | payer BC, OTHER, SELFPAY ==
--- OUTSIDE RECORDS SUMMARY | 2025-05-16 12:15 | XMS_ITS | Encounter Summary ---
Author Organization [facility] [place] [address] Care Team Providers Care Drill Doctor Name Role Phone Radha Domínguez APRN Primary Care Provider [phone] Reason for Visit * Reason Comments Follow-up Encounter Details Date Type Department Care Team (Late Contact Info) Description 05/16/2025 1:15 PM EDT Office Visit [facility] [address] [place] [address] Kj Cottrell MD [address], [place] [id number] Pulmonary nodule 1 cm or greater in diameter (Primary Dx); Hypercholesterolemia; Obesity (BMI 30.0-34.9) Social History Tobacco Use Types Packs/Day Years Used Date Smoking Tobacco: Never Smokeless Tobacco: Never Alcohol Use Standard Drinks/Week Comments Yes 1 (1 standard drink = 0.6 oz pur e alcohol) Sexually Active Control Partners Comments Yes Surgical Male Tubal Comments No Sex and Gender Information Value Date Recorded Sex Assigned at Not on file Legal Sex Female 10:43 AM EDT Gender Identity Not on file Sexual Orientation Not on file documented as of this encounter Last Filed Vital Signs Vital Sign Reading Time Taken Comments Blood Pressure 110/78 05/16/2025 1:13 PM EDT Pulse 74 05/16/2025 1:13 PM EDT Temperature - - Respiratory Rate - - Oxygen Saturation 100% 05/16/2025 1:13 PM EDT Inhaled Oxygen Concentration - - Weight 89.4 kg (197 lb) 05/16/2025 1:13 PM EDT Height 167.6 cm (5' 6 ) 05/16/2025 1:13 PM EDT Body Mass Index 31.8 05/16/2025 1:13 PM EDT documented in this encounter Progress Notes * Kj Cottrell MD - 05/16/2025 1:15 PM EDT [facility] CC: Chief Complaint Patient presents with Follow-up HPI Soledad Galloway is a 59 y.o. female with a history of Mild Intermittent Asthma, Seasonal Allergies, Hypothyroidism, Migraine, IFG, Obesity (BMI 33) and GERD here for follow up. Since last visit saw Pulmonary in [place]. Diagnosed with asthma. Discussed CT and TTE. Both normal. Has small pulmonary nodule which needs follow up. Medications Current Medications[1] PFSH Past Medical History[2] Family History[3] Social History[4] Surgical History[5] ROS Review of Systems Constitutional: Negative for weight loss. HENT: Negative for hearing loss. Eyes: Negative for blurred vision. Respiratory: Positive for shortness of breath. Negative for wheezing. Cardiovascular: Negative for chest pain, palpitations, orthopnea, claudication, leg swelling and PND. Gastrointestinal: Negative for blood in stool and heartburn. Genitourinary: Negative for hematuria. Musculoskeletal: Negative for myalgias. Neurological: Negative for dizziness and loss of consciousness. Psychiatric/Behavioral: Negative for depression. The patient is not nervous/anxious. Physical Exam Vitals: 05/16/25 1313 BP: 110/78 Pulse: 74 SpO2: 100% Wt Readings from Last 3 Encounters: 05/16/25 197 lb (89.4 kg) 01/21/25 207 lb (93.9 kg) 09/14/17 181 lb (82.1 kg) Body mass index is 31.8 kg/m??. Physical Exam Constitutional: General: She is not in acute distress. Appearance: She is well-developed. HENT: Head: Normocephalic and atraumatic. Nose: Nose normal. Neck: Thyroid: No thyroid mass. Vascular: Normal carotid pulses. No carotid bruit, hepatojugular reflux or JVD. Cardiovascular: Rate and Rhythm: Normal rate and regular rhythm. Chest Wall: PMI is not displaced. Pulses: Radial pulses are 2+ on the right side and 2+ on the left side. Heart sounds: Normal heart sounds. No murmur heard. No friction rub. No gallop. Pulmonary: Effort: Pulmonary effort is normal. No respiratory distress. Breath sounds: Normal breath sounds. Abdominal: General: Bowel sounds are normal. There is no distension. Palpations: Abdomen is soft. Tenderness: There is no abdominal tenderness. Musculoskeletal: General: No swelling or deformity. Normal range of motion. Skin: General: Skin is warm and dry. Findings: No rash. Nails: There is no clubbing. Neurological: Mental Status: She is alert and oriented to person, place, and time. Psychiatric: Behavior: Behavior normal. Labs and Imaging Clinical labs and imaging studies were independently reviewed and results were discussed with the patient. Lab Results Component Value Date WBC 5.6 05/07/2016 HGB 14.3 05/07/2016 HCT 41.2 05/07/2016 MCV 88.1 05/07/2016 PLT 226 05/07/2016 Lab Results Component Value Date CREATININE 0.98 05/07/2016 BUN 15 05/07/2016 NA 140 05/07/2016 K 3.6 05/07/2016 CL 101 05/07/2016 CO2 26 05/07/2016 GFRAFRAM >60 05/07/2016 GFRNONAFRAM >60 05/07/2016 The ASCVD Risk score (Lorena GALLEGO, et al., 2019) failed to calculate. Lipids 10/21/24 - Total 151, LDL 78, TG 89, HDL 44 A1c 5.8 EKG 01/21/25 - NSR (61), 1AVB TTE 02/17/25 - LVEF 55-60%, RV nl CT Chest 12/09/24 - chronic rib fractures, R thyroid nodule, liver cysts CT Coronary 01/29/25 - normal, 10 mm nodule LLL, repeat CT rec Impression Pulmonary Nodule - noted 01/29 IFG - last A1c 5.8, Mounjaro 2.5 HLD - diet control, last LDL 78 Obesity - BMI 32, improving Mild Intermittent Asthma Fhx CAD Recommendations - Continue current regimen - CT scan for nodule 3-6 months - RTC 12 months Signed: Kj Cottrell MD 05/16/25 1:55 PM [1] Current Outpatient Medications Medication Sig Dispense Refill albuterol (PROVENTIL HFA; VENTOLIN HFA) 90 mcg/actuation Inhl HFA Aerosol Inhaler Inhale 2 Puffs into the lungs 0800, 1200, 1600, 1999. cetirizine (ZYRTEC) 10 mg Oral Tablet Take 10 mg by mouth daily. famotidine (PEPCID) 10 mg Oral Tablet Take 10 mg by mouth daily. fluticasone propionate (FLONASE) 50 mcg/actuation Nasl [place], Suspension by Nasal route daily. LEVOthyroxine (SYNTHROID) 112 mcg Oral Tablet Take 112 mcg by mouth daily. montelukast (SINGULAIR) 10 mg Oral Tablet Take 10 mg by mouth every evening. rizatriptan (MAXALT) 10 mg Take by mouth once as needed. May repeat in 2 hours if needed sertraline (ZOLOFT) 50 mg Oral Tablet Take 75 mg by mouth daily. tirzepatide (MOUNJARO) 2.5 mg/0.5 mL SubQ Pen Injector Inject 2.5 mg under the skin once a week. No current facility-administered medications for this visit. 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 condyloma on cervix Menorrhagia 08/07/2013 Mild intermittent asthma, uncomplicated 12/2024 [facility] [3] Family History Problem Relation Age of Onset Migraines Mother Pacemaker Mother 83 Diabetes Father Stroke Father Cancer Father Cancer Paternal Grandmother [4] Social History Socioeconomic History Marital status: Legally Spouse name: None Number of children: None Years of education: None Highest education level: None Tobacco Use Smoking status: Never Smokeless tobacco: Never Vaping Use Vaping status: Never Used Substance and Sexual Activity Alcohol use: Yes Alcohol/week: 0.6 oz Types: 1 Standard drinks or equivalent per week Drug use: Never Sexual activity: Yes Partners: Male control/protection: Surgical Comment: Tubal [5] Past Surgical History: Procedure Laterality Date CERVIX LESION DESTRUCTION 08/07/1989 SECTION x3 DILATION AND CURETTAGE OF UTERUS ENDOMETRIAL ABLATION N/A 05/22/2014 ENDOMETRIAL ABLATION NOVASURE WITH DILATION & CURETTAGE HYSTEROSCOPY; Surgeon: Vicki Simms MD; [facility]; Service: Gynecology POLYPECTOMY 2020 [facility] TUBAL LIGATION 08/07/1999 documented in this encounter Miscellaneous Notes * Patient Instructions - Kj Cottrell MD - 05/16/2025 1:15 PM EDT Continue current regimen. CT Chest to follow nodule in left lung with Pulmonary. Follow up in 12 months. documented in this encounter Plan of Treatment Upcoming Encounters Date Type Department Care Team (Late st Contact Info) Description 05/13/2026 11:00 AM EDT Office Visit [facility] [address] [place] [address] Kj Cottrell MD [address] [place] [id number] documented as of this encounter Visit Diagnoses Diagnosis Pulmonary nodule 1 cm or greater in diameter- Primary Hypercholesterolemia Pure hypercholesterolemia Obesity (BMI 30.0-34.9) Obesity, unspecified documented in this encounter Historical Medications * This list may reflect changes made after this encounter. sertraline (ZOLOFT) 50 mg Oral Tablet Take 75 mg by mouth daily. 03/27/2024 added in this encounter Care Teams Drill Doctor Relationship Specialty Start Date End Date Radha Domínguez APRN [address] [facility] [address] [place] [address] PCP - General Nurse Practitioner 05/07/16 documented as of this encounter
--- OUTSIDE RECORDS SUMMARY | 2025-06-13 06:53 | XMS_ITS | Clinical Summary ---
Author Organization [facility] Address [address] [facility] [place] [address] Phone Care Team Providers Care As400 Operator Name Role Phone Radha Domínguez APRN Primary Care Provider [phone] Allergies Active Allergy Reactions Criticality Noted Date Comments Naproxen Sodium Swelling High 03/13/2012 tongue Medications * This document contains information received from the source organization and may not represent a complete record from that organization. rizatriptan (MAXALT) 10 mg Take by mouth once as needed. May repeat in 2 hours if needed Active albuterol (PROVENTIL HFA; VENTOLIN HFA) 90 mcg/actuation Inhl HFA Aerosol Inhaler Inhale 2 Puffs into the lungs 0800, 1200, 1600, 2000. Active cetirizine (ZYRTEC) 10 mg Oral Tablet Take 10 mg by mouth daily. Active famotidine (PEPCID) 10 mg Oral Tablet Take 10 mg by mouth daily. Active fluticasone propionate (FLONASE) 50 mcg/actuation Nasl [place], Suspension by Nasal route daily. Active LEVOthyroxine (SYNTHROID) 112 mcg Oral Tablet Take 112 mcg by mouth daily. Active montelukast (SINGULAIR) 10 mg Oral Tablet Take 10 mg by mouth every evening. Active tirzepatide (MOUNJARO) 2.5 mg/0.5 mL SubQ Pen Injector Inject 2.5 mg under the skin once a week. Active sertraline (ZOLOFT) 50 mg Oral Tablet Take 75 mg by mouth daily. 03/27/2024 Active Active Problems No known active problems Resolved Problems Problem Noted Date Diagnosed Date Resolved Date Menorrhagia 05/22/2014 09/14/2017 Encounters Date Type Department Care Team Description 05/16/2025 1:15 PM EDT Office Visit [facility] [address] [place] [address] Kj Cottrell MD Pulmonary nodule 1 cm or greater in diameter (Primary Dx); Hypercholesterolemia; Obesity (BMI 30.0-34.9) 05/11/2025 Travel from Last 3 Months Surgical History Surgery Date Site/Laterality Comments SECTION x3 DILATION AND CURETTAGE OF UTERUS TUBAL LIGATION 08/07/1999 CERVIX LESION DESTRUCTION 08/07/1989 ENDOMETRIAL ABLATION 05/22/2014 Uterus/N/A ENDOMETRIAL ABLATION NOVASURE WITH DILATION & CURETTAGE HYSTEROSCOPY; Surgeon: Ruy Simms MD; Location: [facility]IN [facility]; Service: Gynecology POLYPECTOMY 08/07/2019 - 08/06/2020 [facility] [place] Medical History Medical History Date Comments Menorrhagia 08/07/2013 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 condyloma on cer vix Heartburn Headache(784.0) Mild intermittent asthma, uncomplicated 12/2024 [facility] Diabetes mellitus (HCC) Family History Medical History Relation Name Comments Cancer Father Diabetes Father Stroke Father Migraines Mother Pacemaker Mother Cancer Paternal Grandmother Relation Name Status Comments Father Mother Paternal Grandmother Social History Tobacco Use Types Packs/Day Years [...] on file Sexual Orientation Not on file Obstetrics History Para Term AB IAB SAB Ectopic Multiple Livin g Live Births 5 3 3 0 2 2 3 Date Outcome GA Total Labor Labor/2nd/3rd Weight Sex Type Anes PTL Mihaela A1 A5 Name Clin SAB SAB Term CS-LTra nv Term CS-LTra nv Term CS-LTra nv Last Filed Vital Signs Vital Sign Reading Time Taken Comments Blood Pressure 110/78 05/16/2025 1:13 PM EDT Pulse 74 05/16/2025 1:13 PM EDT Temperature 36.7 C (98 F) 05/09/2016 8:30 AM EDT Respiratory Rate 18 01/29/2025 9:49 AM EDT Oxygen Saturation 100% 05/16/2025 1:13 PM EDT Inhaled Oxygen Concentration - - Weight 89.4 kg (197 lb) 05/16/2025 1:13 PM EDT Height 167.6 cm (5' 6 ) 05/16/2025 1:13 PM EDT Body Mass Index 31.8 05/16/2025 1:13 PM EDT Plan of Treatment Upcoming Encounters Date Type Department Care Team (Late st Contact Info) Description 05/13/2026 11:00 AM EDT Office Visit [facility] [address] [place] [address] Kj Cottrell MD [address] [place] [address] [place] [address] Health Maintenance Due Date Last Done Comments Annual Wellness Exam 1968 DTaP/TDaP/Td (1 - Tdap) 1984 Hepatitis B Vaccine (1 of 3 - 19+ 3-dose series) 1984 HPV/Pap Cotest 11/02/1995 Cologuard 2010 Colon Cancer Screening 2010 Colonoscopy 2010 FIT 2010 Sigmoidoscopy 2010 Virtual Colonography 2010 Pneumococcal Vaccine 50+ (1 of 1 - PCV) 11/02/2015 Zoster (1 of 2) 11/02/2015 Breast Cancer Screening 02/23/2018 02/24/2016 Cervical Cancer Screening 02/11/2019 Pap Smear 02/11/2019 02/12/2016, 06/28/2013 COVID-19 Vaccine (2 - 2024-2 6 season) 2025 04/04/2021 Influenza Vaccine (#1) 2025 05/10/2021 Meningococcal B Vaccine Aged Out No l onger eligible based on patient's age to complete this topic Procedures Procedure Name Priority Date/Time Associated Diagnosis Comments MM MAMMO DIGITAL DIYA SCREEN BILAT Routine 02/24/2016 10:39 AM EDT Well woman exam with routine gynecological exam [employer] CYTOLOGY REPORT Routine 02/12/2016 4:19 PM EDT from Last 3 Months or Most Recently Relevant to Health Maintenance Results * MM MAMMO DIGITAL DIYA SCREEN BILAT (02/24/2016 10:39 AM EDT) Anatomical Region Laterality Modality Breast Bilateral Mammography 02/29/2016 7:57 AM EDT Impressions 02/29/2016 6:17 PM EDT : Incomplete-need additional imaging evaluation ([id number]) ~ RECOMMENDATION: Ultrasound of the left breast. ~ * The patient with a palpable abnormality, unexplained by breast imaging, should be managed on clinical basis by the attending physician. * Breast imaging has a false negative rate of 15%. * The patient was notified by mail of the results of this examination. *The patient's information was entered into a reminder system with a target due date for the next mammogram. Narrative 02/29/2016 6:17 PM EDT Procedure:MM MAMMO DIGITAL DIYA SCREEN BILAT ~ Reason for exam: screening (asymptomatic). ~ MM MAMMO DIGITAL DIYA SCREEN BILAT Bilateral CC and MLO view(s) were taken. The breast tissue is heterogeneously dense. This may lower the sensitivity of mammography. There is a 1.1 cm. oval nodule with hilar notch in the mid 2:00 position of the left breast. No suspicious calcifications. Compared to prior studies the most recent being 05-17-13 ~ Crystal Ron [facility] IMG MAMMOGRAPHY ORDERABLES Final Result * [employer] CYTOLOGY REPORT (02/12/2016 4:19 PM EDT) Assistant Superintendent For Curriculum Cytology Report PATIENT NAME:SOLEDAD YOUNGBLOOD Assistant Superintendent For Curriculum Cytology Report Accession Number Collected Date/Time Received Date/Time [id number] 02/12/16 16:19 EDT 02/13/16 14:29 EDT GY Specimen Source Specimen Vag/Cerv/Endocx?: Cerv/Endocerv Statement of Adequacy Satisfactory for Evaluation. Transformation Zone Present. Diagnosis NEGATIVE FOR INTRAEPITHELIAL LESION OR MALIGNANCY. Comment Note: Concurrent High-Risk HPV mRNA testing is NEGATIVE. The Pap Smear is a screening test that aids in the detection of cervical cancer and cancer precursors. Both false positive and false negative results can occur. The test should be used at regular intervals, and positive results should be confirmed before definitive therapy. Processed using the [employer]inPrep Cosmetic Consultant automated cytology screening device ([employer]). Solution Professional: SABRINA VILLEGAS 02/15/2016 Completed by: ANA PAULA Jaimes (Electronically signed by) 02/15/[address] [facility] 02/12/2016 4:19 PM EDT Crystal Ron [facility] PATHOLOGY ORDERABLES Final Result [facility] [address] [place] [address] from Last 3 Months or Most Recently Relevant to Health Maintenance Insurance ANTHEM PPO ANTHEM [address] [place] [address] Advance Directives For more information, please contact: [phone] * Full Code (Latest Code Status on File) Date Activated Date Inactivated Comments 05/07/2016 5:39 PM 05/09/2016 7:39 PM Care Teams As400 Operator Relationship Specialty Start Date End Date Radha Domínguez APRN [address] [facility] [address] [facility] [address] PCP - General Nurse Practitioner 05/07/16
--- OUTSIDE RECORDS SUMMARY | 2025-06-13 06:53 | XMS_ITS | Encounter Summary ---
Author Organization [facility] [place] [address] Care Team Providers Care Director Of Individual Giving Name Role Phone Radha Domínguez APRN Primary Care Provider [phone] Encounter Details Date Type Department Care Team (Latest Contact Info) Description 05/11/2025 Travel Social History Tobacco Use Types Packs/Day Years Used Date Smoking Tobacco: Never Smokeless Tobacco: Never Alcohol Use Standard Drinks/Week Comments No 0 (1 standard drink = 0.6 oz pur e alcohol) Sexually Active Control Partners Comments Yes Surgical Male Tubal Comments No Sex and Gender Information Value Date Recorded Sex Assigned at Not on file Legal Sex Female 10:43 AM EDT Gender Identity Not on file Sexual Orientation Not on file documented as of this encounter Plan of Treatment Upcoming Encounters Date Type Department Care Team (Late st Contact Info) Description 05/13/2026 11:00 AM EDT Office Visit [facility] [address] [place] [address] Kj Cottrell MD [address] [place] [address] [place] [address] documented as of this encounter Visit Diagnoses Not on filedocumented in this encounter Care Teams Director Of Individual Giving Relationship Specialty Start Date End Date Radha Domínguez APRN [address] [facility] [address] [place] [address] PCP - General Nurse Practitioner 05/07/16 documented as of this encounter
--- OUTSIDE RECORDS SUMMARY | 2025-06-13 06:53 | XMS_ITS ---
Author Organization Unknown ENCOUNTERS Encounter Performer Location Date Diagnosis Diagnosis Status Emergency [place] [id number] [facility] [address] [place] [address] [id number] A[facility] Pre Admit [address] [place] [address] [id number] Emergency [place] [address] [place] [address] [id number] A[facility] Pre Admit [address] [place] [address] [id number] Pre Admit [address] [place] [address] [id number] Emergency [place] [address] [place] [address] [id number] ANAM *Note: Encounters from your own facility or health system may be excluded. Allergies, Adverse Reactions, Alerts Allergen Type Severity Identification Date naproxen drug allergy [id number] Medications Name Date Quantity Days Supplied GPI Number
--- NOTE | 2025-06-13 07:00 | CT_ITS ---
FINAL REPORT TECHNIQUE: Axial images were obtained through the chest without contrast. Multiplanar reconstructions in the sagittal and coronal planes were subsequently performed. This study was performed with techniques to keep radiation doses as low as reasonably achievable (ALARA). Individualized dose reduction techniques using automated exposure control or adjustment of mA and/or kV according to the patient's size were employed. CLINICAL HISTORY: LLL lung nodule COMPARISON: 12/09/2024 FINDINGS: CT CHEST: No focal consolidation is present. There are calcified subcarinal lymph nodes. The heart size is normal. There is no pericardial or pleural effusion. Limited images of the upper abdomen are unremarkable. Mild scarring is present in the lung bases. There is a 12 mm partially calcified granuloma in the left lung base, and the amount of calcification has increased since the prior CT. There is a 4 mm nodule in the left lung base, best seen on image #172 of series 3. IMPRESSION: 12 mm partially calcified granuloma in the left lung base, with the amount of calcification increased since the prior CT. 4 mm nodule in the left lung base, not previously visualized. Recommend follow-up CT of the chest in 1 year for further evaluation. Reviewed, Interpreted and Dictated by Peter Newman MD Transcribed by Elvia Underwood Authenticated and [facility]
== END 2025-06-13 23:59 | disposition home or self-care (01) ==
LOC: RAD 06:52
PROVIDERS: PCP Nurse Practitioner; Visit Provider Internal Medicine Pulmonary Disease
DX: J98.4 Other disorders of lung (principal); R91.8 Other nonspecific abnormal finding of lung field
CPT/HCPCS: 71250